=== PATIENT | male | born 1970 | race Caucasian/White ===

== ENCOUNTER 2019-10-12 11:14 | Emergency (ER) | payer OTHER ==
[~2019-10-12] VITALS: Ht 177.8 cm; Wt 117.9 kg
[~2019-10-12 11:14] MED LIST: AMOCLA875 PO; ANTIDIARRHEAL; BENTYL20 MG MT; BUTASPCAFT MT; CETI5 PO; DILT120 PO; LEVSOD50 MT; LEVSOD75; LOSHYD MT; METO25 MT; Naprosyn500 MG PO; Norco 5-325 Ta1 EACH PO; PRED10 PO; PROCODE120 PO; Percocet 5-3251 EACH PO; Prednisone20 MG PO; QVAR7.3 G1 MT; Valium5 MG PO; Zithromax250 MG PO
[2019-10-12 12:09] LABS: BASOPHILS ABSOLUTE AUTO 0.12 K/mm3 (0.00-0.23); BASOPHILS PERCENT AUTO 2 % (0-2); EOSINOPHILS ABSOLUTE AUTO 0.24 K/mm3 (0.00-0.68); EOSINOPHILS PERCENT AUTO 4 % (0-6); Hematocrit 47.2 % (37.0-53.0); Hemoglobin 15.7 g/dL (13.5-17.5); IMMATURE GRAN ABSOLUTE AUTO 0.03 K/mm3 (0.00-0.10); IMMATURE GRAN PERCENT AUTO 1 % (0-1); LYMPHOCYTES ABSOLUTE AUTO 1.64 K/mm3 (0.84-5.20); LYMPHOCYTES PERCENT AUTO 25 % (21-46); MONOCYTES ABSOLUTE AUTO 0.48 K/mm3 (0.16-1.47); MONOCYTES PERCENT AUTO 7 % (4-13); Mean Corpuscular HGB 31.3 pg (26.0-34.0); Mean Corpuscular HGB Conc 33.3 g/dL (31.5-36.5); Mean Corpuscular Volume 94 fL (80-100); Mean Platelet Volume 10.7 fL (9.1-12.4); NEUTROPHILS ABSOLUTE AUTO 4.04 K/mm3 (1.96-9.15); NEUTROPHILS PERCENT AUTO 62 % (41-73); Platelet Count 178 K/mm3 (150-400); RDW Coefficient Variation 12.3 % (11.7-14.2); RDW Standard Deviation 42.7 fL (35.1-46.3); Red Blood Cell Count 5.02 M/mm3 (4.30-5.90); White Blood Cell Count 6.55 K/mm3 (4.00-11.30)
[2019-10-12 12:35] LABS: Alanine Aminotransfer (ALT/SGP 26 U/L (12-78); Albumin, Blood 3.8 g/dL (3.4-5.0); Albumin/Globulin Ratio 1.2 (0.8-1.8); Alk Phos 65 U/L (50-136); Anion Gap 4 mmol/L (6-16); Aspartate Aminotrans (AST/SGOT 18 U/L (12-37); Bilirubin, Total 0.5 mg/dL (0.1-1.0); Blood Urea Nitrogen 16 mg/dL (8-24); CO2, Blood 28 mmol/L (21-32); Calcium, Blood 8.9 mg/dL (8.5-10.1); Chloride, Blood 108 mmol/L (98-108); Creatinine, Blood 1.07 mg/dL (0.60-1.20); Globulin, Blood 3.2 g/dL (2.2-4.0); Glomerular Filtration Rate >60 (60-); Glucose, Blood 102 mg/dL (70-99); Potassium, Blood 4.3 mmol/L (3.5-5.5); Sodium, Blood 140 mmol/L (136-145); Troponin I <0.015 ng/mL (0.000-0.040)
[2019-10-12 13:32] LABS: Thyroid Stimulating Hormone 6.27 uIU/mL (0.360-4.800)
[2019-10-12 14:02] LABS: Free Thyroxine 0.87 ng/dL (0.70-1.60)
[2019-10-12 14:07] LABS: Triiodothyronine, Free 2.94 pg/mL (2.18-3.98)
[2019-10-12] MEDS ORDERED: MECL12.5 PO (15:08)
== END 2019-10-12 15:17 | disposition home or self-care (01) ==
LOC: ER 11:14
PROVIDERS: Physician Assistant
DX: R00.2 Palpitations (principal); R51 Headache; I10 Essential (primary) hypertension; I48.91 Unspecified atrial fibrillation; E03.9 Hypothyroidism, unspecified; J44.9 Chronic obstructive pulmonary disease, unspecified; F17.220 Nicotine dependence, chewing tobacco, uncomplicated; Z79.899 Other long term (current) drug therapy
CPT/HCPCS: 36415; 70450; 80053; 83735; 84439; 84443; 84481; 84484; 85025; 93005; 93010; 93225; 93226; 99285-25

== ENCOUNTER 2020-01-03 03:13 | Emergency (ER) | payer OTHER ==
[~2020-01-03] VITALS: Ht 177.8 cm; Wt 120.2 kg
[~2020-01-03 03:13] MED LIST changes: +MECL12.5 PO
[2020-01-03] MEDS ORDERED: EUTHYROX88 MCG PO (03:23)
[2020-01-03] MEDS ORDERED: Anti-Diarrheal2 MG PO (03:23)
[2020-01-03] MEDS ORDERED: ASPI81CH PO (03:23)
[2020-01-03] MEDS ORDERED: DILTIAZEM 24HR300 M2 PO (03:24)
[2020-01-03] MEDS ORDERED: BUPR150ER PO (03:24)
[2020-01-03 03:38] LABS: BASOPHILS ABSOLUTE AUTO 0.07 K/mm3 (0.00-0.23); BASOPHILS PERCENT AUTO 1 % (0-2); EOSINOPHILS ABSOLUTE AUTO 0.13 K/mm3 (0.00-0.68); EOSINOPHILS PERCENT AUTO 2 % (0-6); Hematocrit 42.7 % (37.0-53.0); Hemoglobin 13.9 g/dL (13.5-17.5); IMMATURE GRAN ABSOLUTE AUTO 0.04 K/mm3 (0.00-0.10); IMMATURE GRAN PERCENT AUTO 1 % (0-1); LYMPHOCYTES ABSOLUTE AUTO 1.12 K/mm3 (0.84-5.20); LYMPHOCYTES PERCENT AUTO 13 % (21-46); MONOCYTES ABSOLUTE AUTO 0.56 K/mm3 (0.16-1.47); MONOCYTES PERCENT AUTO 6 % (4-13); Mean Corpuscular HGB 31.2 pg (26.0-34.0); Mean Corpuscular HGB Conc 32.6 g/dL (31.5-36.5); Mean Corpuscular Volume 96 fL (80-100); Mean Platelet Volume 11.5 fL (9.1-12.4); NEUTROPHILS ABSOLUTE AUTO 6.91 K/mm3 (1.96-9.15); NEUTROPHILS PERCENT AUTO 78 % (41-73); Platelet Count 162 K/mm3 (150-400); RDW Coefficient Variation 12.4 % (11.7-14.2); RDW Standard Deviation 44.2 fL (35.1-46.3); Red Blood Cell Count 4.46 M/mm3 (4.30-5.90); White Blood Cell Count 8.83 K/mm3 (4.00-11.30)
[2020-01-03 03:57] LABS: Alanine Aminotransfer (ALT/SGP 30 U/L (12-78); Albumin, Blood 3.7 g/dL (3.4-5.0); Albumin/Globulin Ratio 1.2 (0.8-1.8); Alk Phos 71 U/L (50-136); Anion Gap 7 mmol/L (6-16); Aspartate Aminotrans (AST/SGOT 21 U/L (12-37); Bilirubin, Total 0.2 mg/dL (0.1-1.0); Blood Urea Nitrogen 18 mg/dL (8-24); Bun/Creatinine Ratio 19.4 (12.0-20.0); CO2, Blood 24 mmol/L (21-32); Calcium, Blood 8.5 mg/dL (8.5-10.1); Chloride, Blood 112 mmol/L (98-108); Creatinine, Blood 0.93 mg/dL (0.60-1.20); Glomerular Filtration Rate >60 (60-); Glucose, Blood 118 mg/dL (70-99); Potassium, Blood 4.2 mmol/L (3.5-5.5); Sodium, Blood 143 mmol/L (136-145); Total Protein, Blood 6.7 g/dL (6.4-8.2); Troponin I <0.015 ng/mL (0.000-0.040)
[2020-01-03] MEDS ORDERED: Prednisone20 MG PO (04:48)
== END 2020-01-03 04:55 | disposition home or self-care (01) ==
LOC: ER 03:13
PROVIDERS: Emergency Medicine
DX: J44.1 Chronic obstructive pulmonary disease with (acute) exacerbation (principal); Z91.040 Latex allergy status; Z79.899 Other long term (current) drug therapy; Z79.82 Long term (current) use of aspirin; J45.909 Unspecified asthma, uncomplicated; G43.909 Migraine, unspecified, not intractable, without status migrainosus; I10 Essential (primary) hypertension; I48.91 Unspecified atrial fibrillation; Z87.891 Personal history of nicotine dependence
CPT/HCPCS: 36415; 71045; 80053; 84484; 85025; 93005; 93010; 94644; 96374; 99284-25; J2930

== ENCOUNTER 2021-02-14 10:29 | Emergency (ER) | payer OTHER, SELFPAY ==
[~2021-02-14] VITALS: Ht 177.8 cm; Wt 136.1 kg
[~2021-02-14 10:29] MED LIST changes: +ASPI81CH PO; +Anti-Diarrheal2 MG PO; +BUPR150ER PO; +DILTIAZEM 24HR300 M2 PO; +EUTHYROX88 MCG PO
[2021-02-14 11:01] LABS: BASOPHILS ABSOLUTE AUTO 0.08 K/mm3 (0.00-0.23); BASOPHILS PERCENT AUTO 1 % (0-2); EOSINOPHILS ABSOLUTE AUTO 0.27 K/mm3 (0.00-0.68); EOSINOPHILS PERCENT AUTO 4 % (0-6); Hematocrit 45.4 % (37.0-53.0); Hemoglobin 15.1 g/dL (13.5-17.5); IMMATURE GRAN ABSOLUTE AUTO 0.01 K/mm3 (0.00-0.10); IMMATURE GRAN PERCENT AUTO 0 % (0-1); LYMPHOCYTES ABSOLUTE AUTO 1.99 K/mm3 (0.84-5.20); LYMPHOCYTES PERCENT AUTO 28 % (21-46); MONOCYTES ABSOLUTE AUTO 0.56 K/mm3 (0.16-1.47); MONOCYTES PERCENT AUTO 8 % (4-13); Mean Corpuscular HGB 31.3 pg (26.0-34.0); Mean Corpuscular HGB Conc 33.3 g/dL (31.5-36.5); Mean Corpuscular Volume 94 fL (80-100); Mean Platelet Volume 10.7 fL (9.1-12.4); NEUTROPHILS ABSOLUTE AUTO 4.32 K/mm3 (1.96-9.15); NEUTROPHILS PERCENT AUTO 60 % (41-73); Platelet Count 171 K/mm3 (150-400); RDW Coefficient Variation 12.2 % (11.7-14.2); RDW Standard Deviation 42.5 fL (35.1-46.3); Red Blood Cell Count 4.83 M/mm3 (4.30-5.90); White Blood Cell Count 7.23 K/mm3 (4.00-11.30)
[2021-02-14 11:14] LABS: International Normalized Ratio 0.93
[2021-02-14 11:24] LABS: Alanine Aminotransfer (ALT/SGP 35 U/L (12-78); Albumin, Blood 3.5 g/dL (3.4-5.0); Albumin/Globulin Ratio 1.1 (0.8-1.8); Alk Phos 73 U/L (50-136); Anion Gap 5 mmol/L (6-16); Aspartate Aminotrans (AST/SGOT 22 U/L (12-37); Bilirubin, Total 0.2 mg/dL (0.1-1.0); Blood Urea Nitrogen 20 mg/dL (8-24); Bun/Creatinine Ratio 20.2 (12.0-20.0); CO2, Blood 28 mmol/L (21-32); Calcium, Blood 8.9 mg/dL (8.5-10.1); Chloride, Blood 110 mmol/L (98-108); Creatinine, Blood 0.99 mg/dL (0.60-1.20); Globulin, Blood 3.1 g/dL (2.2-4.0); Glomerular Filtration Rate >60 (60-); Glucose, Blood 125 mg/dL (70-99); Potassium, Blood 3.8 mmol/L (3.5-5.5); Sodium, Blood 143 mmol/L (136-145); Total Protein, Blood 6.6 g/dL (6.4-8.2); Troponin I <0.015 ng/mL (0.000-0.040)
[2021-02-14] MEDS ORDERED: ATEN25 PO (13:45)
[2021-02-14] MEDS ORDERED: CLON.1 PO (13:45)
== END 2021-02-14 14:55 | disposition home or self-care (01) ==
LOC: ER 10:29
PROVIDERS: Emergency Medicine
DX: R07.9 Chest pain, unspecified (principal); I10 Essential (primary) hypertension; E03.9 Hypothyroidism, unspecified; J44.9 Chronic obstructive pulmonary disease, unspecified; I48.91 Unspecified atrial fibrillation; F17.220 Nicotine dependence, chewing tobacco, uncomplicated; Z79.82 Long term (current) use of aspirin; Z79.899 Other long term (current) drug therapy
CPT/HCPCS: 71045; 80053; 83880; 84484; 85025; 85610; 93005; 93010; 99285-25

== ENCOUNTER 2021-04-06 20:40 | Emergency (ER) | payer OTHER, SELFPAY ==
[~2021-04-06] VITALS: Ht 177.8 cm; Wt 136.1 kg
[~2021-04-06 20:40] MED LIST changes: +ATEN25 PO; +CLON.1 PO
[2021-04-06 21:13] LABS: BASOPHILS ABSOLUTE AUTO 0.08 K/mm3 (0.00-0.23); BASOPHILS PERCENT AUTO 1 % (0-2); EOSINOPHILS ABSOLUTE AUTO 0.16 K/mm3 (0.00-0.68); EOSINOPHILS PERCENT AUTO 2 % (0-6); Hemoglobin 14.7 g/dL (13.5-17.5); IMMATURE GRAN ABSOLUTE AUTO 0.03 K/mm3 (0.00-0.10); IMMATURE GRAN PERCENT AUTO 0 % (0-1); LYMPHOCYTES ABSOLUTE AUTO 2.25 K/mm3 (0.84-5.20); LYMPHOCYTES PERCENT AUTO 25 % (21-46); MONOCYTES ABSOLUTE AUTO 0.59 K/mm3 (0.16-1.47); MONOCYTES PERCENT AUTO 7 % (4-13); Mean Corpuscular HGB 31.8 pg (26.0-34.0); Mean Corpuscular HGB Conc 33.4 g/dL (31.5-36.5); Mean Corpuscular Volume 95 fL (80-100); Mean Platelet Volume 11.4 fL (9.1-12.4); NEUTROPHILS ABSOLUTE AUTO 5.97 K/mm3 (1.96-9.15); NEUTROPHILS PERCENT AUTO 66 % (41-73); Platelet Count 165 K/mm3 (150-400); RDW Coefficient Variation 12.4 % (11.7-14.2); RDW Standard Deviation 43.4 fL (35.1-46.3); Red Blood Cell Count 4.62 M/mm3 (4.30-5.90); White Blood Cell Count 9.08 K/mm3 (4.00-11.30)
[2021-04-06 21:33] LABS: Alanine Aminotransfer (ALT/SGP 31 U/L (12-78); Albumin, Blood 3.8 g/dL (3.4-5.0); Albumin/Globulin Ratio 1.2 (0.8-1.8); Alk Phos 58 U/L (50-136); Anion Gap 4 mmol/L (6-16); Aspartate Aminotrans (AST/SGOT 30 U/L (12-37); Bilirubin, Total 0.6 mg/dL (0.1-1.0); Blood Urea Nitrogen 12 mg/dL (8-24); Bun/Creatinine Ratio 10.5 (12.0-20.0); CO2, Blood 29 mmol/L (21-32); Chloride, Blood 107 mmol/L (98-108); Creatinine, Blood 1.14 mg/dL (0.60-1.20); Globulin, Blood 3.2 g/dL (2.2-4.0); Glomerular Filtration Rate >60 (60-); Glucose, Blood 114 mg/dL (70-99); Sodium, Blood 140 mmol/L (136-145)
[2021-04-06] MEDS ORDERED: BUPR150ER PO (22:59)
[2021-04-06] MEDS ORDERED: EUTHYROX88 MCG PO (23:00)
[2021-04-06] MEDS ORDERED: FURO20 PO (23:01)
[2021-04-06] MEDS ORDERED: KLOR-CON M1010 MEQ PO (23:02)
[2021-04-06] MEDS ORDERED: GABA300 PO (23:02)
[2021-04-06] MEDS ORDERED: VITAMIN D325 MC3 PO (23:03)
[2021-04-06] MEDS ORDERED: HUMIRA PEN40 MG/0.2 SC (23:05)
== END 2021-04-06 23:30 | disposition home or self-care (01) ==
LOC: ER 20:40
PROVIDERS: Physician Assistant
DX: R60.0 Localized edema (principal); I10 Essential (primary) hypertension; E03.9 Hypothyroidism, unspecified; I48.91 Unspecified atrial fibrillation; J44.9 Chronic obstructive pulmonary disease, unspecified; Z79.82 Long term (current) use of aspirin; Z79.899 Other long term (current) drug therapy; Z91.040 Latex allergy status
CPT/HCPCS: 71045; 80053; 85025; 99283-25

== ENCOUNTER 2021-06-07 20:47 | Emergency (ER) | payer OTHER ==
[~2021-06-07] VITALS: Ht 177.8 cm; Wt 132.0 kg
[~2021-06-07 20:47] MED LIST changes: +FURO20 PO; +GABA300 PO; +HUMIRA PEN40 MG/0.2 SC; +KLOR-CON M1010 MEQ PO; +VITAMIN D325 MC3 PO
[2021-06-07 21:45] LABS: BASOPHILS ABSOLUTE AUTO 0.08 K/mm3 (0.00-0.23); BASOPHILS PERCENT AUTO 1 % (0-2); EOSINOPHILS ABSOLUTE AUTO 0.24 K/mm3 (0.00-0.68); EOSINOPHILS PERCENT AUTO 4 % (0-6); Hematocrit 47.5 % (37.0-53.0); Hemoglobin 15.6 g/dL (13.5-17.5); IMMATURE GRAN ABSOLUTE AUTO 0.05 K/mm3 (0.00-0.10); IMMATURE GRAN PERCENT AUTO 1 % (0-1); LYMPHOCYTES ABSOLUTE AUTO 2.65 K/mm3 (0.84-5.20); LYMPHOCYTES PERCENT AUTO 40 % (21-46); MONOCYTES ABSOLUTE AUTO 0.31 K/mm3 (0.16-1.47); MONOCYTES PERCENT AUTO 5 % (4-13); Mean Corpuscular HGB 31.5 pg (26.0-34.0); Mean Corpuscular HGB Conc 32.8 g/dL (31.5-36.5); Mean Corpuscular Volume 96 fL (80-100); Mean Platelet Volume 12.6 fL (9.1-12.4); NEUTROPHILS ABSOLUTE AUTO 3.28 K/mm3 (1.96-9.15); NEUTROPHILS PERCENT AUTO 50 % (41-73); Platelet Count 133 K/mm3 (150-400); RDW Coefficient Variation 12.2 % (11.7-14.2); RDW Standard Deviation 43.4 fL (35.1-46.3); Red Blood Cell Count 4.95 M/mm3 (4.30-5.90); White Blood Cell Count 6.61 K/mm3 (4.00-11.30)
[2021-06-07 22:24] LABS: Alanine Aminotransfer (ALT/SGP 44 U/L (12-78); Albumin, Blood 3.4 g/dL (3.4-5.0); Albumin/Globulin Ratio 1.1 (0.8-1.8); Alk Phos 73 U/L (50-136); Anion Gap 4 mmol/L (6-16); Aspartate Aminotrans (AST/SGOT 43 U/L (12-37); Bilirubin, Total 0.2 mg/dL (0.1-1.0); Blood Urea Nitrogen 17 mg/dL (8-24); CO2, Blood 26 mmol/L (21-32); Calcium, Blood 8.7 mg/dL (8.5-10.1); Chloride, Blood 112 mmol/L (98-108); Glomerular Filtration Rate >60 (60-); Glucose, Blood 79 mg/dL (70-99); Potassium, Blood 4.2 mmol/L (3.5-5.5); Sodium, Blood 142 mmol/L (136-145); Total Protein, Blood 6.4 g/dL (6.4-8.2); Troponin I <0.015 ng/mL (0.000-0.040)
== END 2021-06-07 23:10 | disposition home or self-care (01) ==
LOC: ER 20:47
PROVIDERS: Physician Assistant
DX: R00.2 Palpitations (principal); I10 Essential (primary) hypertension; E03.9 Hypothyroidism, unspecified; I48.91 Unspecified atrial fibrillation; F17.220 Nicotine dependence, chewing tobacco, uncomplicated; Z79.82 Long term (current) use of aspirin; Z79.899 Other long term (current) drug therapy; Z91.040 Latex allergy status
CPT/HCPCS: 36415; 71045; 80053; 83690; 83880; 84484; 85025; 93005; 93010; 94640; 99285-25

== ENCOUNTER 2021-10-13 16:49 | Emergency (ER) | payer OTHER ==
[~2021-10-13] VITALS: Ht 177.8 cm; Wt 74.8 kg
[2021-10-13 17:34] LABS: BASOPHILS ABSOLUTE AUTO 0.07 K/mm3 (0.00-0.23); BASOPHILS PERCENT AUTO 1 % (0-2); EOSINOPHILS ABSOLUTE AUTO 0.14 K/mm3 (0.00-0.68); EOSINOPHILS PERCENT AUTO 2 % (0-6); Hematocrit 46.9 % (37.0-53.0); Hemoglobin 15.5 g/dL (13.5-17.5); IMMATURE GRAN ABSOLUTE AUTO 0.01 K/mm3 (0.00-0.10); IMMATURE GRAN PERCENT AUTO 0 % (0-1); LYMPHOCYTES ABSOLUTE AUTO 2.21 K/mm3 (0.84-5.20); LYMPHOCYTES PERCENT AUTO 33 % (21-46); MONOCYTES ABSOLUTE AUTO 0.41 K/mm3 (0.16-1.47); MONOCYTES PERCENT AUTO 6 % (4-13); Mean Corpuscular HGB 32.2 pg (26.0-34.0); Mean Corpuscular Volume 97 fL (80-100); Mean Platelet Volume 12.6 fL (9.1-12.4); NEUTROPHILS ABSOLUTE AUTO 3.93 K/mm3 (1.96-9.15); NEUTROPHILS PERCENT AUTO 58 % (41-73); Platelet Count 138 K/mm3 (150-400); RDW Coefficient Variation 11.9 % (11.7-14.2); RDW Standard Deviation 43.2 fL (35.1-46.3); Red Blood Cell Count 4.82 M/mm3 (4.30-5.90); White Blood Cell Count 6.77 K/mm3 (4.00-11.30)
[2021-10-13 17:54] LABS: Alanine Aminotransfer (ALT/SGP 51 U/L (12-78); Albumin/Globulin Ratio 1.1 (0.8-1.8); Alk Phos 64 U/L (50-136); Anion Gap 4 mmol/L (6-16); Aspartate Aminotrans (AST/SGOT 29 U/L (12-37); Bilirubin, Total 0.6 mg/dL (0.1-1.0); Blood Urea Nitrogen 20 mg/dL (8-24); Bun/Creatinine Ratio 20.7 (12.0-20.0); CO2, Blood 28 mmol/L (21-32); Calcium, Blood 9.5 mg/dL (8.5-10.1); Chloride, Blood 105 mmol/L (98-108); Creatinine, Blood 0.97 mg/dL (0.60-1.20); Globulin, Blood 3.5 g/dL (2.2-4.0); Glomerular Filtration Rate >60 (60-); Glucose, Blood 96 mg/dL (70-99); Potassium, Blood 4.1 mmol/L (3.5-5.5); Sodium, Blood 137 mmol/L (136-145); Total Protein, Blood 7.5 g/dL (6.4-8.2)
== END 2021-10-13 21:01 | disposition home or self-care (01) ==
LOC: ER 16:49
PROVIDERS: Physician Assistant
DX: R07.89 Other chest pain (principal); R00.2 Palpitations; R42 Dizziness and giddiness; I10 Essential (primary) hypertension; E03.9 Hypothyroidism, unspecified; I48.91 Unspecified atrial fibrillation; J44.9 Chronic obstructive pulmonary disease, unspecified; F17.220 Nicotine dependence, chewing tobacco, uncomplicated; Z91.040 Latex allergy status; Z79.899 Other long term (current) drug therapy; Z79.82 Long term (current) use of aspirin
CPT/HCPCS: 36415; 71046; 80053; 84484; 85025; 93005; 93010; 99285-25

== ENCOUNTER 2022-09-10 15:45 | Emergency (ER) | payer OTHER ==
[~2022-09-10] VITALS: Ht 177.8 cm; Wt 117.9 kg
[2022-09-10 16:30] LABS: BASOPHILS ABSOLUTE AUTO 0.12 K/mm3 (0.00-0.23); BASOPHILS PERCENT AUTO 2 % (0-2); EOSINOPHILS ABSOLUTE AUTO 0.26 K/mm3 (0.00-0.68); EOSINOPHILS PERCENT AUTO 4 % (0-6); Hematocrit 42.7 % (37.0-53.0); Hemoglobin 14.3 g/dL (13.5-17.5); IMMATURE GRAN ABSOLUTE AUTO 0.01 K/mm3 (0.00-0.10); IMMATURE GRAN PERCENT AUTO 0 % (0-1); LYMPHOCYTES ABSOLUTE AUTO 2.28 K/mm3 (0.84-5.20); LYMPHOCYTES PERCENT AUTO 37 % (21-46); MONOCYTES ABSOLUTE AUTO 0.39 K/mm3 (0.16-1.47); MONOCYTES PERCENT AUTO 6 % (4-13); Mean Corpuscular HGB 31.4 pg (26.0-34.0); Mean Corpuscular HGB Conc 33.5 g/dL (31.5-36.5); Mean Corpuscular Volume 94 fL (80-100); Mean Platelet Volume 10.8 fL (9.1-12.4); NEUTROPHILS ABSOLUTE AUTO 3.18 K/mm3 (1.96-9.15); NEUTROPHILS PERCENT AUTO 51 % (41-73); Platelet Count 164 K/mm3 (150-400); RDW Standard Deviation 42.1 fL (35.1-46.3); Red Blood Cell Count 4.56 M/mm3 (4.30-5.90); White Blood Cell Count 6.24 K/mm3 (4.00-11.30)
[2022-09-10 16:47] LABS: Albumin, Blood 3.8 g/dL (3.4-5.0); Albumin/Globulin Ratio 1.4 (0.8-1.8); Bilirubin, Total 0.3 mg/dL (0.1-1.0); Bun/Creatinine Ratio 12.7 (12.0-20.0); Creatinine, Blood 1.1 mg/dL (0.60-1.20); Globulin, Blood 2.8 g/dL (2.2-4.0); Potassium, Blood 4.2 mmol/L (3.5-5.5); Total Protein, Blood 6.6 g/dL (6.4-8.2)
== END 2022-09-10 21:25 | disposition home or self-care (01) ==
LOC: ER 15:45
PROVIDERS: Physician Assistant
DX: R00.2 Palpitations (principal); R42 Dizziness and giddiness; I10 Essential (primary) hypertension; I48.0 Paroxysmal atrial fibrillation; E03.9 Hypothyroidism, unspecified; J44.9 Chronic obstructive pulmonary disease, unspecified; F17.220 Nicotine dependence, chewing tobacco, uncomplicated; Z91.040 Latex allergy status; Z79.899 Other long term (current) drug therapy; Z79.82 Long term (current) use of aspirin
CPT/HCPCS: 36415; 71045; 80053; 83880; 84484; 85025; 93005; 93010; A9270

== ENCOUNTER 2023-02-21 00:30 | Emergency (ER) | payer OTHER ==
[~2023-02-21] VITALS: Ht 177.8 cm; Wt 127.0 kg
[2023-02-21 01:25] LABS: BASOPHILS PERCENT AUTO 2 % (0-2); EOSINOPHILS ABSOLUTE AUTO 0.19 K/mm3 (0.00-0.68); EOSINOPHILS PERCENT AUTO 3 % (0-6); Hematocrit 45.1 % (37.0-53.0); Hemoglobin 14.8 g/dL (13.5-17.5); IMMATURE GRAN ABSOLUTE AUTO 0.01 K/mm3 (0.00-0.10); IMMATURE GRAN PERCENT AUTO 0 % (0-1); LYMPHOCYTES ABSOLUTE AUTO 2.85 K/mm3 (0.84-5.20); LYMPHOCYTES PERCENT AUTO 42 % (21-46); MONOCYTES ABSOLUTE AUTO 0.51 K/mm3 (0.16-1.47); MONOCYTES PERCENT AUTO 7 % (4-13); Mean Corpuscular HGB 30.8 pg (26.0-34.0); Mean Corpuscular HGB Conc 32.8 g/dL (31.5-36.5); Mean Corpuscular Volume 94 fL (80-100); Mean Platelet Volume 11.5 fL (9.1-12.4); NEUTROPHILS PERCENT AUTO 47 % (41-73); Platelet Count 148 K/mm3 (150-400); RDW Coefficient Variation 12.1 % (11.7-14.2); RDW Standard Deviation 42.4 fL (35.1-46.3); Red Blood Cell Count 4.81 M/mm3 (4.30-5.90); White Blood Cell Count 6.86 K/mm3 (4.00-11.30)
[2023-02-21 01:39] LABS: Albumin, Blood 3.8 g/dL (3.4-5.0); Albumin/Globulin Ratio 1.2 (0.8-1.8); Bilirubin, Total 0.3 mg/dL (0.1-1.0); Bun/Creatinine Ratio 20.5 (12.0-20.0); Creatinine, Blood 1.12 mg/dL (0.60-1.20); Globulin, Blood 3.2 g/dL (2.2-4.0); Potassium, Blood 4.2 mmol/L (3.5-5.5)
== END 2023-02-21 03:39 | disposition home or self-care (01) ==
LOC: ER 00:30
PROVIDERS: Emergency Medicine
DX: I10 Essential (primary) hypertension (principal); R42 Dizziness and giddiness; R51.9 Headache, unspecified; E03.9 Hypothyroidism, unspecified; J44.9 Chronic obstructive pulmonary disease, unspecified; F17.220 Nicotine dependence, chewing tobacco, uncomplicated; Z91.040 Latex allergy status; Z79.899 Other long term (current) drug therapy; Z79.82 Long term (current) use of aspirin
CPT/HCPCS: 36415; 80053; 85025; 93005; 93010; 96374; 96375; 99283-25; J0780; J1200

== ENCOUNTER 2023-12-23 13:40 | Emergency (ER) | payer OTHER ==
[~2023-12-23] VITALS: Ht 177.8 cm; Wt 128.8 kg
[2023-12-23 14:19] LABS: BASOPHILS ABSOLUTE AUTO 0.13 K/mm3 (0.00-0.23); BASOPHILS PERCENT AUTO 2 % (0-2); EOSINOPHILS ABSOLUTE AUTO 0.23 K/mm3 (0.00-0.68); EOSINOPHILS PERCENT AUTO 3 % (0-6); Hematocrit 46.2 % (37.0-53.0); Hemoglobin 15.3 g/dL (13.5-17.5); IMMATURE GRAN ABSOLUTE AUTO 0.01 K/mm3 (0.00-0.10); IMMATURE GRAN PERCENT AUTO 0 % (0-1); LYMPHOCYTES ABSOLUTE AUTO 2.36 K/mm3 (0.84-5.20); LYMPHOCYTES PERCENT AUTO 35 % (21-46); MONOCYTES ABSOLUTE AUTO 0.51 K/mm3 (0.16-1.47); MONOCYTES PERCENT AUTO 8 % (4-13); Mean Corpuscular HGB 31.6 pg (26.0-34.0); Mean Corpuscular HGB Conc 33.1 g/dL (31.5-36.5); Mean Corpuscular Volume 96 fL (80-100); Mean Platelet Volume 10.4 fL (9.1-12.4); NEUTROPHILS PERCENT AUTO 52 % (41-73); Platelet Count 181 K/mm3 (150-400); RDW Coefficient Variation 12.3 % (11.7-14.2); RDW Standard Deviation 43.2 fL (35.1-46.3); Red Blood Cell Count 4.84 M/mm3 (4.30-5.90); White Blood Cell Count 6.74 K/mm3 (4.00-11.30)
[2023-12-23 14:38] LABS: Albumin, Blood 3.9 g/dL (3.4-5.0); Albumin/Globulin Ratio 1.2 (0.8-1.8); Bilirubin, Total 0.5 mg/dL (0.1-1.0); Bun/Creatinine Ratio 26.2 (12.0-20.0); Calcium, Blood 9.5 mg/dL (8.5-10.1); Creatinine, Blood 1.03 mg/dL (0.60-1.20); Globulin, Blood 3.2 g/dL (2.2-4.0); Potassium, Blood 4.3 mmol/L (3.5-5.5); Total Protein, Blood 7.1 g/dL (6.4-8.2)
[2023-12-23] MEDS ORDERED: FURO80 PO (15:04)
[2023-12-23] MEDS ORDERED: BACLOFEN5 M1 PO (15:04)
[2023-12-23] MEDS ORDERED: POTA8 PO (15:04)
[2023-12-23 19:25] VITALS: BP 128/80
== END 2023-12-23 19:29 | disposition home or self-care (01) ==
LOC: ER 13:40
PROVIDERS: Physician Assistant
DX: E86.0 Dehydration (principal); R35.89 Other polyuria; I48.91 Unspecified atrial fibrillation; I11.0 Hypertensive heart disease with heart failure; I50.9 Heart failure, unspecified; K58.9 Irritable bowel syndrome, unspecified; E03.9 Hypothyroidism, unspecified; J44.9 Chronic obstructive pulmonary disease, unspecified; G89.29 Other chronic pain; F17.220 Nicotine dependence, chewing tobacco, uncomplicated; Z91.040 Latex allergy status; Z79.82 Long term (current) use of aspirin; Z79.899 Other long term (current) drug therapy; Z79.890 Hormone replacement therapy
CPT/HCPCS: 71046; 80053; 83690; 83880; 84484; 85025; 93005; 93010; 99284-25; J7030

== ENCOUNTER 2023-12-29 14:52 | Observation (INO) | payer OTHER ==
[~2023-12-29] VITALS: Ht 177.8 cm; Wt 140.3 kg
[~2023-12-29 14:52] MED LIST changes: +BACLOFEN5 M1 PO; +FURO80 PO; +POTA8 PO
[2023-12-29 15:36] LABS: BASOPHILS ABSOLUTE AUTO 0.11 K/mm3 (0.00-0.23); BASOPHILS PERCENT AUTO 1 % (0-2); EOSINOPHILS ABSOLUTE AUTO 0.24 K/mm3 (0.00-0.68); EOSINOPHILS PERCENT AUTO 3 % (0-6); Hematocrit 47.9 % (37.0-53.0); Hemoglobin 16.1 g/dL (13.5-17.5); IMMATURE GRAN ABSOLUTE AUTO 0.01 K/mm3 (0.00-0.10); IMMATURE GRAN PERCENT AUTO 0 % (0-1); LYMPHOCYTES PERCENT AUTO 28 % (21-46); MONOCYTES ABSOLUTE AUTO 0.63 K/mm3 (0.16-1.47); MONOCYTES PERCENT AUTO 8 % (4-13); Mean Corpuscular HGB 31.6 pg (26.0-34.0); Mean Corpuscular HGB Conc 33.6 g/dL (31.5-36.5); Mean Corpuscular Volume 94 fL (80-100); Mean Platelet Volume 10.6 fL (9.1-12.4); NEUTROPHILS ABSOLUTE AUTO 4.63 K/mm3 (1.96-9.15); NEUTROPHILS PERCENT AUTO 59 % (41-73); Platelet Count 182 K/mm3 (150-400); RDW Coefficient Variation 12.1 % (11.7-14.2); RDW Standard Deviation 42.3 fL (35.1-46.3); White Blood Cell Count 7.82 K/mm3 (4.00-11.30)
[2023-12-29 15:56] LABS: Alanine Aminotransfer (ALT/SGP 34 U/L (12-78); Albumin, Blood 3.6 g/dL (3.4-5.0); Alk Phos 73 U/L (50-136); Anion Gap Unable to Calculate mmol/L (6-16); Aspartate Aminotrans (AST/SGOT 27 U/L (12-37); Bilirubin, Total 0.4 mg/dL (0.1-1.0); Blood Urea Nitrogen 20 mg/dL (8-24); Bun/Creatinine Ratio 21.9 (12.0-20.0); CO2, Blood 28 mmol/L (21-32); Calcium, Blood 9.1 mg/dL (8.5-10.1); Chloride, Blood 113 mmol/L (98-108); Creatinine, Blood 0.91 mg/dL (0.60-1.20); Globulin, Blood 3.5 g/dL (2.2-4.0); Glomerular Filtration Rate 100 (60-); Glucose, Blood 112 mg/dL (70-99); Potassium, Blood 4.7 mmol/L (3.5-5.5); Sodium, Blood 140 mmol/L (136-145); Total Protein, Blood 7.1 g/dL (6.4-8.2)
[2023-12-29] MEDS ORDERED: Aspirin 81 MG Chew PO ONE (21:50)
[2023-12-29] MEDS ORDERED: FLU VACC QS2023-24(6MOS UP)/PF 60 MCG/0.5 ML SYRINGE IM ONE (22:25)
[2023-12-29] MEDS ORDERED: Ondansetron HCl 2 MG / ML 2ML Vial IV PRN (22:25)
[2023-12-29] MEDS ORDERED: Acetaminophen 325 MG TABLET PO PRN (22:25)
[2023-12-29] MEDS ORDERED: Albuterol 2.5 MG/3 ML VIAL INH PRN (22:25)
[2023-12-29] MEDS ORDERED: Robaxin750 MG PO (22:50)
[2023-12-29] MEDS ORDERED: POTA10T PO (22:51)
[2023-12-29] MEDS ORDERED: FURO20 PO (22:51)
[2023-12-29] MEDS ORDERED: AMIT25 PO (22:52)
[2023-12-29] MEDS ORDERED: BACL10 PO (22:53)
[2023-12-29] MEDS ORDERED: Albuterol 2.5 MG/3 ML VIAL INH ONE (23:00)
[2023-12-29 23:34] VITALS: BP 145/97
--- NOTE | 2023-12-30 04:06 | NUR ---
SHIFT SUMMARY 53 YR M ADMITTED ON 01/18/24. FULL CODE. NO ACUTE CHANGES THIS SHIFT. NO C/O PAIN OR DISCOMFORT OR HEART PALPATIONS. NO ADVERSE EVENTS ON TELE. PT IS A&O X 4 AND INDEPENDANT IN THE ROOM. AFTER HAVING A SNACK HE WENT TO SLEEP AND SLEPT FOR THE REST OF THE SHIFT. HE IS VERY PLEASANT AND COOPERATIVE WITH CARE. BED IN LOW POSITION AND CALL LIGHT IN REACH.
[2023-12-30] MEDS ORDERED: Levothyroxine Sodium 0.088 MG Tab PO SCH (06:00)
[2023-12-30 07:47] VITALS: BP 111/67
[2023-12-30] MEDS ORDERED: Enoxaparin 40 MG/0.4 ML SYR SC SCH (09:00)
[2023-12-30] MEDS ORDERED: Atenolol 25 MG Tab PO SCH (09:00)
[2023-12-30] MEDS ORDERED: Aspirin 81 MG Chew PO SCH (09:00)
[2023-12-30] MEDS ORDERED: FAMO20 PO (12:12)
--- NOTE | 2023-12-30 13:46 | NUR ---
PT DIACHARGED WITH DC INSTRUCTIONS. ONE NEW MED FOR PRILOSEC CALLED IN TO [facility] [place]. BELONGINGS SENT HOME WITH PT. WILL FOLLOW UP WITH PCP. PT DECLINED WHEELCHAIR, RN ESCORTED TO ELEVATER AND DIRECTED THE WAY. PT HAS GOOD STRENGTH AND INDEPENDANT TO CAR.
== END 2023-12-30 12:51 | disposition home or self-care (01) ==
LOC: ER 14:52 → MEDS 14:53 → ENPENDDIS 12-30 10:57 → MEDS 12-30 12:51
PROVIDERS: Physician Assistant; ADMIT Internal Medicine
DX: R07.89 Other chest pain (principal); E03.9 Hypothyroidism, unspecified; I10 Essential (primary) hypertension; G47.33 Obstructive sleep apnea (adult) (pediatric); E66.01 Morbid (severe) obesity due to excess calories; F17.200 Nicotine dependence, unspecified, uncomplicated; J44.9 Chronic obstructive pulmonary disease, unspecified; Z68.41 Body mass index [BMI] 40.0-44.9, adult
CPT/HCPCS: 70450; 71046; 80053; 84443; 84484; 85025; 93005; 93010; 94760; 99285-25; A9270; G0378

== ENCOUNTER 2024-07-26 17:24 | Emergency (ER) | payer OTHER ==
[~2024-07-26] VITALS: Ht 177.8 cm; Wt 122.5 kg
[~2024-07-26 17:24] MED LIST changes: +AMIT25 PO; +BACL10 PO; +FAMO20 PO; +POTA10T PO; +Robaxin750 MG PO
[2024-07-26 18:20] LABS: BASOPHILS PERCENT AUTO 1 % (0-2); EOSINOPHILS ABSOLUTE AUTO 0.17 K/mm3 (0.00-0.68); EOSINOPHILS PERCENT AUTO 2 % (0-6); Hematocrit 43.3 % (37.0-53.0); Hemoglobin 14.3 g/dL (13.5-17.5); IMMATURE GRAN ABSOLUTE AUTO 0.05 K/mm3 (0.00-0.10); IMMATURE GRAN PERCENT AUTO 0 % (0-1); LYMPHOCYTES ABSOLUTE AUTO 2.18 K/mm3 (0.84-5.20); LYMPHOCYTES PERCENT AUTO 19 % (21-46); MONOCYTES ABSOLUTE AUTO 0.94 K/mm3 (0.16-1.47); MONOCYTES PERCENT AUTO 8 % (4-13); Mean Corpuscular HGB 31.4 pg (26.0-34.0); Mean Corpuscular Volume 95 fL (80-100); Mean Platelet Volume 10.6 fL (9.1-12.4); NEUTROPHILS ABSOLUTE AUTO 8.04 K/mm3 (1.96-9.15); NEUTROPHILS PERCENT AUTO 70 % (41-73); Platelet Count 197 K/mm3 (150-400); RDW Coefficient Variation 12.3 % (11.7-14.2); RDW Standard Deviation 42.8 fL (35.1-46.3); Red Blood Cell Count 4.56 M/mm3 (4.30-5.90); White Blood Cell Count 11.48 K/mm3 (4.00-11.30)
[2024-07-26 18:35] LABS: Albumin, Blood 3.6 g/dL (3.4-5.0); Albumin/Globulin Ratio 1.1 (0.8-1.8); Bilirubin, Total 0.9 mg/dL (0.1-1.0); Bun/Creatinine Ratio 16.8 (12.0-20.0); Calcium, Blood 9.2 mg/dL (8.5-10.1); Creatinine, Blood 1.01 mg/dL (0.60-1.20); Globulin, Blood 3.4 g/dL (2.2-4.0); Potassium, Blood 4.1 mmol/L (3.5-5.5)
[2024-07-26 19:17] LABS: Influenza A, PCR NEGATIVE (NEGATIVE); Influenza B, PCR NEGATIVE (NEGATIVE); Resp Syncytial Virus, PCR NEGATIVE (NEGATIVE); SARS-Cov-2 (COVID-19) PCR, MMC NEGATIVE (NEGATIVE)
[2024-07-26] MEDS ORDERED: Morphine Sulfate 4 MG/1 ML Injection IV ONE (21:30)
[2024-07-26] MEDS ORDERED: Ondansetron HCl 2 MG / ML 2ML Vial IV ONE (21:30)
[2024-07-27 00:30] VITALS: BP 114/71
[2024-07-27] MEDS ORDERED: LIDO700A20 TOP (00:40)
[2024-07-27] MEDS ORDERED: Robaxin750 MG PO (00:40)
== END 2024-07-27 00:53 | disposition home or self-care (01) ==
LOC: ER 17:24
PROVIDERS: Student in an Organized Health Care Education/Training Program
DX: R07.2 Precordial pain (principal); R91.1 Solitary pulmonary nodule; D72.829 Elevated white blood cell count, unspecified; J44.89 Other specified chronic obstructive pulmonary disease; I48.91 Unspecified atrial fibrillation; E03.9 Hypothyroidism, unspecified; G43.909 Migraine, unspecified, not intractable, without status migrainosus; I11.0 Hypertensive heart disease with heart failure; I50.9 Heart failure, unspecified; F17.220 Nicotine dependence, chewing tobacco, uncomplicated; Z79.82 Long term (current) use of aspirin; Z79.899 Other long term (current) drug therapy; Z91.040 Latex allergy status
CPT/HCPCS: 0241U; 71045; 71260; 74177; 80053; 84484; 85025; 93005; 93010; 96374-59; 96375-59; 99285-25; J2270; J2405; Q9967

== ENCOUNTER 2024-08-07 07:16 | Inpatient (IN) | payer OTHER ==
[~2024-08-07] VITALS: Ht 177.8 cm; Wt 123.6 kg
[~2024-08-07 07:16] MED LIST changes: +LIDO700A20 TOP
[2024-08-07] MEDS ORDERED: Morphine Sulfate 4 MG/1 ML Injection IV ONE ×2 (08:00→09:30)
[2024-08-07 08:12] LABS: BASOPHILS ABSOLUTE AUTO 0.06 K/mm3 (0.00-0.23); BASOPHILS PERCENT AUTO 0 % (0-2); EOSINOPHILS ABSOLUTE AUTO 0.04 K/mm3 (0.00-0.68); EOSINOPHILS PERCENT AUTO 0 % (0-6); Hematocrit 37.6 % (37.0-53.0); Hemoglobin 12.3 g/dL (13.5-17.5); IMMATURE GRAN ABSOLUTE AUTO 0.05 K/mm3 (0.00-0.10); IMMATURE GRAN PERCENT AUTO 0 % (0-1); LYMPHOCYTES ABSOLUTE AUTO 1.11 K/mm3 (0.84-5.20); LYMPHOCYTES PERCENT AUTO 8 % (21-46); MONOCYTES ABSOLUTE AUTO 1.11 K/mm3 (0.16-1.47); MONOCYTES PERCENT AUTO 8 % (4-13); Mean Corpuscular HGB 31.1 pg (26.0-34.0); Mean Corpuscular HGB Conc 32.7 g/dL (31.5-36.5); Mean Corpuscular Volume 95 fL (80-100); Mean Platelet Volume 9.9 fL (9.1-12.4); NEUTROPHILS ABSOLUTE AUTO 11.95 K/mm3 (1.96-9.15); NEUTROPHILS PERCENT AUTO 83 % (41-73); Platelet Count 217 K/mm3 (150-400); RDW Coefficient Variation 11.9 % (11.7-14.2); RDW Standard Deviation 41.6 fL (35.1-46.3); Red Blood Cell Count 3.95 M/mm3 (4.30-5.90); White Blood Cell Count 14.32 K/mm3 (4.00-11.30)
[2024-08-07 08:24] LABS: Albumin, Blood 2.7 g/dL (3.4-5.0); Albumin/Globulin Ratio 0.8 (0.8-1.8); Bilirubin, Total 0.8 mg/dL (0.1-1.0); Calcium, Blood 8.6 mg/dL (8.5-10.1); Creatinine, Blood 0.8 mg/dL (0.60-1.20); Globulin, Blood 3.5 g/dL (2.2-4.0); Potassium, Blood 4.1 mmol/L (3.5-5.5); Total Protein, Blood 6.2 g/dL (6.4-8.2)
[2024-08-07] MEDS ORDERED: Azithromycin 500 MG in NS 250 ML IV ONE (10:25)
[2024-08-07] MEDS ORDERED: CefTRIAXone Sodium 2,000 MG in NS 100 ML IV ONE (10:25)
[2024-08-07] MEDS ORDERED: Methocarbamol 500 MG Tab PO PRN (10:45)
[2024-08-07] MEDS ORDERED: Ondansetron 4 MG TAB PO PRN (10:50)
[2024-08-07] MEDS ORDERED: OxyCODONE HCL 5 MG TAB PO PRN (10:50)
[2024-08-07] MEDS ORDERED: Bisacodyl 10 MG Supp PR PRN (10:55)
[2024-08-07] MEDS ORDERED: Magnesium Hydroxide Conc 10 ML UDC PO PRN (10:55)
[2024-08-07] MEDS ORDERED: Acetaminophen 325 MG TABLET PO PRN (10:55)
[2024-08-07] MEDS ORDERED: Naloxone HCl 0.4MG / ML 1ML Vial IV PRN (10:55)
[2024-08-07] MEDS ORDERED: HYDROmorphone HCl 2 MG Tab PO PRN ×2 (11:30→18:16)
[2024-08-07] MEDS ORDERED: Furosemide 10 MG/ML 4ML Vial IV ONE (11:35)
[2024-08-07 12:43] VITALS: BP 154/116
[2024-08-07 15:22] VITALS: BP 120/71
--- NOTE | 2024-08-07 18:13 | NUR ---
SPOKE TO DR MONTES DE OCA, AFTER DILAUDID TOOK EFFECT, PT DESAT A LITTLE. PLACED ON CPAP AND 3L O2. ORDERS TO DROP DILAUDID TO 1 MG. DONE
--- NOTE | 2024-08-07 18:32 | NUR ---
PT PLEASANT AT ADMIT. AT BEDSIDE. PT ADMITTED FOR HYPOXIA AND PAIN R/T NODULE IN CHEST WALL / LUNG AREA. HE HAD RECEIVED DILAUDID 2 MG IN ER AT NOON. AT ARRIVAL, HE WAS WORKING HARD WITH SHORT SHALLOW RESPIRATIONS AND STATED WAS TRYING TO DEAL WITH THE PAIN. WHEN DILAUDID STARTED IN ABOUT 1300 HE BEGAN TO RELAX MORE. AT 13;30 PT FINALLY RELAXED AND FELL ASLEEP. O2 ON 2L FOR COMFORT. SATS > 94% , RT CALLED LATER IN DAY, STATES HE DESATTED, PLACED ON CPAP AND IS DOING WELL, ALSO PLACED ON CONT BIOX. MAINTAINING >90%. DISCUSSED PT WITH DR MONTES DE OCA. DILAUDID CUT BACK SOME. NO OTHER CHANGES NOTED. BED IN LOW POSITION, CALL LITE IN REACH. AT BEDSIDE.
[2024-08-07 19:31] VITALS: BP 116/90
[2024-08-07] MEDS ORDERED: Amitriptyline HCl 25 MG Tab PO SCH (21:00)
[2024-08-07] MEDS ORDERED: Amitriptyline HCl 50 MG Tab PO SCH (21:00)
[2024-08-07] MEDS ORDERED: Atenolol 25 MG Tab PO SCH (21:00)
[2024-08-07] MEDS ORDERED: Famotidine 20 MG Tab PO SCH (21:00)
[2024-08-08] MEDS ORDERED: HYDROmorphone HCl 2 MG Tab PO PRN (01:00)
[2024-08-08 04:16] VITALS: BP 138/83
[2024-08-08 04:35] LABS: BASOPHILS ABSOLUTE AUTO 0.08 K/mm3 (0.00-0.23); BASOPHILS PERCENT AUTO 0 % (0-2); EOSINOPHILS ABSOLUTE AUTO 0.04 K/mm3 (0.00-0.68); EOSINOPHILS PERCENT AUTO 0 % (0-6); Hematocrit 40.6 % (37.0-53.0); Hemoglobin 13.3 g/dL (13.5-17.5); IMMATURE GRAN ABSOLUTE AUTO 0.07 K/mm3 (0.00-0.10); IMMATURE GRAN PERCENT AUTO 0 % (0-1); LYMPHOCYTES PERCENT AUTO 9 % (21-46); MONOCYTES ABSOLUTE AUTO 1.54 K/mm3 (0.16-1.47); MONOCYTES PERCENT AUTO 9 % (4-13); Mean Corpuscular HGB 31.1 pg (26.0-34.0); Mean Corpuscular HGB Conc 32.8 g/dL (31.5-36.5); Mean Corpuscular Volume 95 fL (80-100); Mean Platelet Volume 9.9 fL (9.1-12.4); NEUTROPHILS ABSOLUTE AUTO 14.86 K/mm3 (1.96-9.15); NEUTROPHILS PERCENT AUTO 82 % (41-73); Platelet Count 235 K/mm3 (150-400); RDW Standard Deviation 42.1 fL (35.1-46.3); Red Blood Cell Count 4.27 M/mm3 (4.30-5.90); White Blood Cell Count 18.19 K/mm3 (4.00-11.30)
[2024-08-08 04:55] LABS: Albumin, Blood 2.8 g/dL (3.4-5.0); Albumin/Globulin Ratio 0.7 (0.8-1.8); Bilirubin, Total 0.7 mg/dL (0.1-1.0); Bun/Creatinine Ratio 18.4 (12.0-20.0); Calcium, Blood 9.6 mg/dL (8.5-10.1); Creatinine, Blood 0.98 mg/dL (0.60-1.20); Globulin, Blood 4.2 g/dL (2.2-4.0); Potassium, Blood 4.1 mmol/L (3.5-5.5)
[2024-08-08] MEDS ORDERED: Levothyroxine Sodium 0.088 MG Tab PO SCH (06:00)
[2024-08-08] MEDS ORDERED: ALBU90OI INH (06:33)
[2024-08-08] MEDS ORDERED: Albuterol 2.5 MG/3 ML VIAL INH PRN (06:50)
--- NOTE | 2024-08-08 07:40 | NUR ---
END OF SHIFT SUMMARY PT HAS NOT BEEN GETTING TOO DROWSY WITH PAIN MEDS. HE WAS A LITTLE LETHARGIC YESTERDAY AFTERNOON BUT THIS WAS MOST LIKELY DUE TO HIM NOT SLEEPING FOR A FEW DAYS BECAUSE OF PAIN. HE SAYS THE ORAL DILAUDID IS THE ONLY THING THAT HAS WORKED FOR HIS PAIN. HE SAYS IV FENTANYL AND IV MORPHINE DIDNT WORK. HE HAS BEEN REQUIRING 2-4L NC BECAUSE HE DOES NOT WANT TO TAKE A DEEP BREATH. WE DISCUSSED MULTIPLE TIMES THE IMPORTANCE OF OVERRIDING THE URGE TO BREATH SHALLOW. HE UNDERSTANDS THAT HE HAS PNUEMONIA AND IS SUPPOSED TO TAKE DEEPER BREATHS BUT HE IS VERY ANXIOUS TO DO SO.
[2024-08-08 08:05] VITALS: BP 123/83
[2024-08-08] MEDS ORDERED: Enoxaparin 40 MG/0.4 ML SYR SC SCH (09:00)
[2024-08-08] MEDS ORDERED: Aspirin 81 MG Chew PO SCH (09:00)
[2024-08-08] MEDS ORDERED: NS 250 ML IV PRN (09:00)
[2024-08-08] MEDS ORDERED: Azithromycin 500 MG in NS 250 ML IV SCH (09:00)
[2024-08-08] MEDS ORDERED: Ketorolac Tromethamine 30mg Vial IV PRN (11:35)
[2024-08-08] MEDS ORDERED: Azithromycin 250 MG Tab PO SCH (12:00)
[2024-08-08] MEDS ORDERED: CefTRIAXone Sodium 2,000 MG in NS 100 ML IV SCH (12:00)
[2024-08-08] MEDS ORDERED: Acetaminophen 325 MG TABLET PO SCH (12:00)
[2024-08-08 14:59] VITALS: BP 132/81
[2024-08-08] MEDS ORDERED: HADLIMA(CF40 MG/0.1 SC (15:08)
[2024-08-08] MEDS ORDERED: ASPERFLEX1 EACH TOP (15:08)
--- NOTE | 2024-08-08 18:26 | NUR ---
SHIFT SUMMARY PT A&OX4, VSS, ON 2L O2 NC, TOLERATING PO, STANDS AT BEDSIDE TO VOID, VIA URINAL, AND PAIN MANAGED PER EMAR. PT CONT TO BE WEAK, BUT STATES PAIN MANAGEMENT IMPROVED. NO OTHER ACUTE CHANGES. CALL LIGHT WITHIN REACH AND PT ABLE TO MAKE NEEDS KNOWN.
[2024-08-08 21:33] VITALS: BP 146/86
[2024-08-09] MEDS ORDERED: Ipratropium/Albuterol SulF 2.5-0.5MG/3 ML Amp INH SCH (03:25)
[2024-08-09 03:45] VITALS: BP 123/80
[2024-08-09 04:53] LABS: BASOPHILS ABSOLUTE AUTO 0.09 K/mm3 (0.00-0.23); BASOPHILS PERCENT AUTO 1 % (0-2); EOSINOPHILS ABSOLUTE AUTO 0.26 K/mm3 (0.00-0.68); EOSINOPHILS PERCENT AUTO 2 % (0-6); Hemoglobin 12.7 g/dL (13.5-17.5); IMMATURE GRAN ABSOLUTE AUTO 0.06 K/mm3 (0.00-0.10); IMMATURE GRAN PERCENT AUTO 0 % (0-1); LYMPHOCYTES ABSOLUTE AUTO 1.28 K/mm3 (0.84-5.20); LYMPHOCYTES PERCENT AUTO 9 % (21-46); MONOCYTES ABSOLUTE AUTO 1.34 K/mm3 (0.16-1.47); MONOCYTES PERCENT AUTO 10 % (4-13); Mean Corpuscular HGB 30.8 pg (26.0-34.0); Mean Corpuscular HGB Conc 32.6 g/dL (31.5-36.5); Mean Corpuscular Volume 95 fL (80-100); Mean Platelet Volume 9.9 fL (9.1-12.4); NEUTROPHILS ABSOLUTE AUTO 11.03 K/mm3 (1.96-9.15); NEUTROPHILS PERCENT AUTO 79 % (41-73); Platelet Count 228 K/mm3 (150-400); RDW Coefficient Variation 11.9 % (11.7-14.2); RDW Standard Deviation 41.5 fL (35.1-46.3); Red Blood Cell Count 4.12 M/mm3 (4.30-5.90); White Blood Cell Count 14.06 K/mm3 (4.00-11.30)
[2024-08-09 05:13] LABS: Bun/Creatinine Ratio 22.7 (12.0-20.0); Calcium, Blood 9.2 mg/dL (8.5-10.1); Creatinine, Blood 0.75 mg/dL (0.60-1.20)
[2024-08-09 07:34] VITALS: BP 148/79
[2024-08-09] MEDS ORDERED: Ketorolac Tromethamine 30mg Vial IV ONE (08:00)
[2024-08-09] MEDS ORDERED: Lidocaine 4% 1 Patch TOP SCH (09:00)
[2024-08-09 15:25] VITALS: BP 126/76
--- NOTE | 2024-08-09 17:30 | NUR ---
SHIFT SUMMARY ATTEMPT TO TITRATE O2 UNSUCCESSFUL. PT DESAT INTO THE LOW 80'S. PT CONT TO REMAIN ON 2L O2 NC. PAIN MANAGED PER EMAR. PT ABLE TO AMB AROUND THE ROOM THIS SHIFT. NO OTHER ACUTE CHANGES. CALL LIGHT WITHIN REACH AND PT ABLE TO MAKE NEEDS KNOWN.
[2024-08-09 19:55] VITALS: BP 135/83
[2024-08-10 03:04] VITALS: BP 126/68
[2024-08-10 05:23] LABS: BASOPHILS ABSOLUTE AUTO 0.06 K/mm3 (0.00-0.23); BASOPHILS PERCENT AUTO 0 % (0-2); EOSINOPHILS ABSOLUTE AUTO 0.14 K/mm3 (0.00-0.68); EOSINOPHILS PERCENT AUTO 1 % (0-6); Hemoglobin 12.5 g/dL (13.5-17.5); IMMATURE GRAN ABSOLUTE AUTO 0.08 K/mm3 (0.00-0.10); IMMATURE GRAN PERCENT AUTO 1 % (0-1); LYMPHOCYTES PERCENT AUTO 7 % (21-46); MONOCYTES ABSOLUTE AUTO 1.19 K/mm3 (0.16-1.47); MONOCYTES PERCENT AUTO 8 % (4-13); Mean Corpuscular HGB 30.9 pg (26.0-34.0); Mean Corpuscular HGB Conc 32.9 g/dL (31.5-36.5); Mean Corpuscular Volume 94 fL (80-100); Mean Platelet Volume 10.6 fL (9.1-12.4); NEUTROPHILS ABSOLUTE AUTO 11.63 K/mm3 (1.96-9.15); NEUTROPHILS PERCENT AUTO 83 % (41-73); Platelet Count 267 K/mm3 (150-400); RDW Coefficient Variation 11.9 % (11.7-14.2); RDW Standard Deviation 40.7 fL (35.1-46.3); Red Blood Cell Count 4.05 M/mm3 (4.30-5.90)
[2024-08-10 05:43] LABS: Bun/Creatinine Ratio 23.8 (12.0-20.0); Calcium, Blood 9.3 mg/dL (8.5-10.1); Creatinine, Blood 0.76 mg/dL (0.60-1.20); Potassium, Blood 3.8 mmol/L (3.5-5.5)
[2024-08-10 07:42] VITALS: BP 134/82
[2024-08-10] MEDS ORDERED: OxyCODONE HCL 5 MG TAB PO PRN (11:05)
[2024-08-10 15:52] VITALS: BP 142/69
--- NOTE | 2024-08-10 17:46 | NUR ---
SHIFT SUMMARY PT HAD HOME O2 EVAL. PT ON RA DURING THE DAY, BUT REQUIRED 2L O2 NC W/ ACTIVITY. PAIN MANAGED PER EMAR AND IMPROVED FROM YESTERDAY. PT AMB AROUND THE ROOM AND HALLWAY. NO OTHER ACUTE CHANGES. CALL LIGHT WITHIN REACH AND PT ABLE TO MAKE NEEDS KNOWN.
[2024-08-10 20:19] VITALS: BP 143/72
[2024-08-11 05:19] VITALS: BP 129/83
[2024-08-11 05:28] LABS: Hemoglobin 12.4 g/dL (13.5-17.5); Mean Corpuscular HGB 30.8 pg (26.0-34.0); Mean Corpuscular HGB Conc 32.6 g/dL (31.5-36.5); Mean Corpuscular Volume 94 fL (80-100); Platelet Count 297 K/mm3 (150-400); RDW Coefficient Variation 12.2 % (11.7-14.2); RDW Standard Deviation 42.6 fL (35.1-46.3); Red Blood Cell Count 4.03 M/mm3 (4.30-5.90); White Blood Cell Count 14.34 K/mm3 (4.00-11.30)
[2024-08-11 05:48] LABS: Bun/Creatinine Ratio 18.1 (12.0-20.0); Creatinine, Blood 0.72 mg/dL (0.60-1.20); Potassium, Blood 3.7 mmol/L (3.5-5.5)
--- NOTE | 2024-08-11 06:00 | NUR ---
SHIFT SUMMARY NOC PT A/O X 4. PLEASANT AND COOPERATIVE WITH CARE. VSS. AT BEDSIDE. PT STILL ON O2 2L/NC AND REPORTS SOB WITH AMBULATION. PT HAD HOME O2 EVALUATION YESTERDAY AND BALBIRALEX WILL HAVE HOME O2 SETUP PRIOR TO DISCHARGE. PT ON TELE SINUS TACH IN HIGH 90'S AND LOW 100'S. PT DECLINED TAKING BEDTIME ELAVIL AND PEPCID STATNG THAT THEY NO LONGER TAKE RX AT HOME. PT POSSIBLE DISCHARGE HOME TODAY. PT CURRENTLY RESTING WITH BED IN LOWEST POSITION, AND CALL LIGHT WITHIN REACH.
[2024-08-11 07:36] VITALS: BP 123/77
--- NOTE | 2024-08-11 09:03 | NUR ---
Pt sitting up in chair, at bedside, a/ox4, pleasant and cooperative with care, follows commands well, denies pain, states he's feeling good and going home today, lungs are clear t/o, resp even and unlabored, no cough noted, hrr, tele in place running sr to st per monitor, see strip, 1+ edema noted to b/l le, ppp +1, cap refill <3 sec, vs stable, afebrile, piv to lac site is clear and patent, btx4, abd flat soft nontender, voids without diff, skin c/w/d, maew, freedom, call light in reach.
[2024-08-11] MEDS ORDERED: CEFP200 PO (13:04)
[2024-08-11] MEDS ORDERED: ACET325 PO (13:06)
--- NOTE | 2024-08-11 14:06 | NUR ---
pt is being discharged to home, went over discharge instructions with him, he verbalized understanding, new medications faxed to his pharmacy, iv removed intact, he has o2 delivered, will leave via wheelchair.
--- NOTE | 2024-08-11 15:00 | NUR ---
Pt has been discharged to home with home health, iv removed intact, went over discharge instructions with him and his , they verbalized understanding, new medications were faxed to his pharmacy, left via wheelchair with gis web developer and in attendence with all his belongings.
== END 2024-08-11 15:07 | disposition home or self-care (01) | DRG 871 ==
LOC: ER 07:16 → MEDS 07:17 → ENPENDDIS 08-11 13:08 → MEDS 08-11 15:07
PROVIDERS: Emergency Medicine; ADMIT Hospitalist
DX: A41.9 Sepsis, unspecified organism (principal); J15.69 Pneumonia due to other Gram-negative bacteria; J96.01 Acute respiratory failure with hypoxia; J44.0 Chronic obstructive pulmonary disease with (acute) lower respiratory infection; I10 Essential (primary) hypertension; E03.9 Hypothyroidism, unspecified; G43.909 Migraine, unspecified, not intractable, without status migrainosus; K58.9 Irritable bowel syndrome, unspecified; I48.0 Paroxysmal atrial fibrillation; F17.220 Nicotine dependence, chewing tobacco, uncomplicated; R91.1 Solitary pulmonary nodule; M54.9 Dorsalgia, unspecified; G89.29 Other chronic pain; Z91.040 Latex allergy status; Z79.82 Long term (current) use of aspirin; Z79.890 Hormone replacement therapy; Z79.01 Long term (current) use of anticoagulants; Z79.899 Other long term (current) drug therapy
CPT/HCPCS: 36415; 71046; 80048; 80053; 83605; 84484; 85025; 85027; 87040; 93005; 93010; 94640; 94660; 94664; 94761; 94762; 96365; 96367; 96375; 96376; 97110; 97116; 97162; 97530; 99285-25; A9270; G0378; J0456; J0696; J1885; J1940; J2270; J7050

== ENCOUNTER 2024-08-19 17:24 | Inpatient (IN) | payer OTHER ==
[~2024-08-19] VITALS: Ht 177.8 cm; Wt 127.3 kg
[~2024-08-19 17:24] MED LIST changes: +ACET325 PO; +ALBU90OI INH; +ASPERFLEX1 EACH TOP; +CEFP200 PO; +HADLIMA(CF40 MG/0.1 SC
[2024-08-19 18:10] LABS: BASOPHILS ABSOLUTE AUTO 0.09 K/mm3 (0.00-0.23); BASOPHILS PERCENT AUTO 1 % (0-2); EOSINOPHILS ABSOLUTE AUTO 0.21 K/mm3 (0.00-0.68); EOSINOPHILS PERCENT AUTO 2 % (0-6); Hematocrit 34.4 % (37.0-53.0); Hemoglobin 11.3 g/dL (13.5-17.5); IMMATURE GRAN PERCENT AUTO 1 % (0-1); LYMPHOCYTES PERCENT AUTO 13 % (21-46); MONOCYTES ABSOLUTE AUTO 0.79 K/mm3 (0.16-1.47); MONOCYTES PERCENT AUTO 7 % (4-13); Mean Corpuscular HGB 30.7 pg (26.0-34.0); Mean Corpuscular HGB Conc 32.8 g/dL (31.5-36.5); Mean Corpuscular Volume 94 fL (80-100); Mean Platelet Volume 9.3 fL (9.1-12.4); NEUTROPHILS ABSOLUTE AUTO 8.68 K/mm3 (1.96-9.15); NEUTROPHILS PERCENT AUTO 76 % (41-73); Platelet Count 423 K/mm3 (150-400); RDW Standard Deviation 41.7 fL (35.1-46.3); Red Blood Cell Count 3.68 M/mm3 (4.30-5.90); White Blood Cell Count 11.37 K/mm3 (4.00-11.30)
[2024-08-19 18:25] LABS: International Normalized Ratio 1.06; Prothrombin Time Results 11.3 Sec (9.7-11.5)
[2024-08-19] MEDS ORDERED: Clindamycin 900mg in D5W 50ML 50 ML IV ONE (18:25)
[2024-08-19] MEDS ORDERED: Cefepime HCl 2,000 MG in NS 100 ML IV ONE (18:25)
[2024-08-19 18:39] LABS: Albumin, Blood 2.1 g/dL (3.4-5.0); Albumin/Globulin Ratio 0.5 (0.8-1.8); Bilirubin, Total 0.2 mg/dL (0.1-1.0); Bun/Creatinine Ratio 17.8 (12.0-20.0); Calcium, Blood 8.3 mg/dL (8.5-10.1); Creatinine, Blood 0.68 mg/dL (0.60-1.20); Globulin, Blood 4.4 g/dL (2.2-4.0); Potassium, Blood 4.2 mmol/L (3.5-5.5); Total Protein, Blood 6.5 g/dL (6.4-8.2)
[2024-08-19] MEDS ORDERED: Vancomycin HCL 2,500 MG in NS 500 ML IV ONE (18:45)
[2024-08-19] MEDS ORDERED: Ipratropium/Albuterol SulF 2.5-0.5MG/3 ML Amp INH PRN (20:05)
[2024-08-19] MEDS ORDERED: FLU VACC TS2024-25(6MOS UP)/PF 45 MCG/0.5 ML SYRINGE IM SCH (20:05)
[2024-08-19] MEDS ORDERED: Ondansetron HCl 2 MG / ML 2ML Vial IV PRN (20:05)
[2024-08-19] MEDS ORDERED: Piperacillin/Tazobactam Sod 4.5 GM in NS 100 ML IV SCH (21:00)
[2024-08-19] MEDS ORDERED: NS 250 ML IV PRN (22:35)
[2024-08-19 22:37] VITALS: BP 160/95
[2024-08-19] MEDS ORDERED: IBUP600 (22:43)
[2024-08-19] MEDS ORDERED: OXYC5 PO (23:06)
[2024-08-19] MEDS ORDERED: FentaNYL Citrate 50 MCG/ML 2 ML Injection IV PRN (23:20)
[2024-08-20 02:00] VITALS: BP 153/88
[2024-08-20 05:41] LABS: BASOPHILS PERCENT AUTO 1 % (0-2); EOSINOPHILS ABSOLUTE AUTO 0.18 K/mm3 (0.00-0.68); EOSINOPHILS PERCENT AUTO 2 % (0-6); Hematocrit 33.6 % (37.0-53.0); Hemoglobin 10.9 g/dL (13.5-17.5); IMMATURE GRAN ABSOLUTE AUTO 0.08 K/mm3 (0.00-0.10); IMMATURE GRAN PERCENT AUTO 1 % (0-1); LYMPHOCYTES ABSOLUTE AUTO 1.51 K/mm3 (0.84-5.20); LYMPHOCYTES PERCENT AUTO 14 % (21-46); MONOCYTES ABSOLUTE AUTO 0.84 K/mm3 (0.16-1.47); MONOCYTES PERCENT AUTO 8 % (4-13); Mean Corpuscular HGB 30.6 pg (26.0-34.0); Mean Corpuscular HGB Conc 32.4 g/dL (31.5-36.5); Mean Corpuscular Volume 94 fL (80-100); Mean Platelet Volume 9.2 fL (9.1-12.4); NEUTROPHILS ABSOLUTE AUTO 7.88 K/mm3 (1.96-9.15); NEUTROPHILS PERCENT AUTO 74 % (41-73); Platelet Count 422 K/mm3 (150-400); RDW Standard Deviation 42.2 fL (35.1-46.3); Red Blood Cell Count 3.56 M/mm3 (4.30-5.90); White Blood Cell Count 10.59 K/mm3 (4.00-11.30)
[2024-08-20 06:07] LABS: Albumin, Blood 2.1 g/dL (3.4-5.0); Albumin/Globulin Ratio 0.5 (0.8-1.8); Bilirubin, Total 0.5 mg/dL (0.1-1.0); Calcium, Blood 8.7 mg/dL (8.5-10.1); Creatinine, Blood 0.75 mg/dL (0.60-1.20); Globulin, Blood 4.4 g/dL (2.2-4.0); Total Protein, Blood 6.5 g/dL (6.4-8.2)
[2024-08-20 07:30] VITALS: BP 147/86
[2024-08-20 08:48] VITALS: BP 159/86
[2024-08-20] MEDS ORDERED: Vancomycin HCL 2,000 MG in NS 500 ML IV SCH (09:00)
[2024-08-20] MEDS ORDERED: Atenolol 50 MG Tab PO SCH (10:00)
[2024-08-20] MEDS ORDERED: Acetaminophen 325 MG TABLET PO PRN (10:00)
[2024-08-20] MEDS ORDERED: Albuterol HFA200 ACT/6.7 GM INH INH PRN (10:10)
[2024-08-20 10:19] VITALS: BP 144/90
[2024-08-20 10:47] LABS: Automated BF WBC Count 1.008 K/mm3 (0-999)
[2024-08-20 11:38] LABS: Albumin, Body Fluid 1.7 g/dL; Glucose, Body Fluid 23 mg/dL; Triglycerides, Body Fluid 37 mg/dL
[2024-08-20 11:41] LABS: Body Fluid WBC Count 1008 /mm3 (0-999)
[2024-08-20 11:57] LABS: Lactate Dehydrogenase, Body Fl 2655 U/L; Protein, Body Fluid 4.2 g/dL
[2024-08-20 12:06] LABS: pH, Body Fluid 7.9
[2024-08-20 12:39] LABS: RBC Count, Body Fluid 191 /mm3 (0-0)
[2024-08-20 12:42] LABS: Appearance, Body Fluid Hazy (Clear); Color, Body Fluid Yellow (None-Yellow); Total Cell Count, Body Fluid 100
[2024-08-20 15:31] VITALS: BP 140/88
--- NOTE | 2024-08-20 17:51 | NUR ---
SHIFT SUMMARY: PATIENT A/OX4, PLEASANT AND COOPERATIVE c CARE. PATIENT DENIES CP/PRESSURE, N/V AND DIZZINESS. PATIENT ON TELE, SR HR IN THE 60'S BPM. PATIENT HAD HIS THORA DONE AND CHEST TUBE IN PLACED TO MID BACK BY DR. SAHU (DYE MAKER) THIS AM, TOLERATED WELL. PATIENT CHEST TUBE CONNECTED TO SUCTION c 130 MLS SEROSANGUINEOUS PLEURAL FLUID IN THE CANISTER. PATIENT ON 2L O2 VIA NC, SATTING 95-98%. PATIENT MEDICATED FOR PAIN TO BACK-CHEST TUBE SITE PER EMAR c GOOD EFFECT. PATIENT HAS GREAT APPETITE, CONTINENT OF BLADDER AND USES URINAL T/O SHIFT. PATIENT RECEIVED IV ABX/SCHEDULED MEDS PER EMAR. VITAL SIGNS REVIEWED. CALL LIGHT IN REACH. PATIENT SPOUSE AT BEDSIDE T/O SHIFT.
[2024-08-20 19:20] VITALS: BP 150/85
[2024-08-20] MEDS ORDERED: Enoxaparin 40 MG/0.4 ML SYR SC SCH (20:00)
[2024-08-20] MEDS ORDERED: FentaNYL Citrate 50 MCG/ML 2 ML Injection IV PRN (21:40)
[2024-08-21 03:03] VITALS: BP 144/93
--- NOTE | 2024-08-21 07:16 | NUR ---
WINEMAKER SUMMARY CT OUTPUT 30ML OVERNIGHT. PT HAS BEEN VERY PAINFUL SINCE CHEST TUBE PLACEMENT. 2L O2. NEW IV PLACED. PT HAD BM. AT BEDSIDE. PT DID NOT SLEEP WELL. HE HAS HAD A HARD TIME GETTING COMFORTABLE. PT TAKES LASIX "PRN" AT HOME FOR LEG SWELLING. PT HAS 2+ LE EDEMA TODAY. PASSED ON TO DAY SHIFT NURSE TO CONSIDER ASKING MD FOR A DOSE OF LASIX TODAY.
[2024-08-21 07:33] VITALS: BP 138/83
[2024-08-21] MEDS ORDERED: Alteplase 1 MG/ML 10 MG,NS 30 ML in Syringe 1 SYR XX SCH ×2 (08:00→20:30)
[2024-08-21] MEDS ORDERED: Dornase Alfa 5 MG,NS 25 ML in Syringe 1 SYR XX SCH ×2 (08:00→20:30)
[2024-08-21 08:41] LABS: BASOPHILS ABSOLUTE AUTO 0.12 K/mm3 (0.00-0.23); BASOPHILS PERCENT AUTO 1 % (0-2); EOSINOPHILS ABSOLUTE AUTO 0.24 K/mm3 (0.00-0.68); EOSINOPHILS PERCENT AUTO 3 % (0-6); Hematocrit 34.7 % (37.0-53.0); Hemoglobin 11.2 g/dL (13.5-17.5); IMMATURE GRAN ABSOLUTE AUTO 0.06 K/mm3 (0.00-0.10); IMMATURE GRAN PERCENT AUTO 1 % (0-1); LYMPHOCYTES ABSOLUTE AUTO 1.51 K/mm3 (0.84-5.20); LYMPHOCYTES PERCENT AUTO 17 % (21-46); MONOCYTES ABSOLUTE AUTO 0.68 K/mm3 (0.16-1.47); MONOCYTES PERCENT AUTO 8 % (4-13); Mean Corpuscular HGB 30.6 pg (26.0-34.0); Mean Corpuscular HGB Conc 32.3 g/dL (31.5-36.5); Mean Corpuscular Volume 95 fL (80-100); Mean Platelet Volume 9.3 fL (9.1-12.4); NEUTROPHILS ABSOLUTE AUTO 6.51 K/mm3 (1.96-9.15); NEUTROPHILS PERCENT AUTO 71 % (41-73); Platelet Count 404 K/mm3 (150-400); RDW Coefficient Variation 11.9 % (11.7-14.2); RDW Standard Deviation 41.6 fL (35.1-46.3); Red Blood Cell Count 3.66 M/mm3 (4.30-5.90); White Blood Cell Count 9.12 K/mm3 (4.00-11.30)
--- NOTE | 2024-08-21 08:46 | NUR ---
DR DE LUNA TO BEDSIDE FOR TPN INJECTION FOR OBSTRUCTED CHEST TUBE. VERBAL ORDER TO ADMINISTER 50MCG FENTANYL. UPON ADMINISTERING, VERBAL ORDER TO LOWER DOSE TO 25MCG. NEVIN SANTACRUZ RN, AT BEDSIDE WITH THIS RN PROVIDED WASTE. TUBE CLAMPED AT 0835. PER PROVIDER, CALL HIM IN ONE HOUR TO FOLLOW-UP AND UNCLAMP.
[2024-08-21 08:55] LABS: Albumin, Blood 2.1 g/dL (3.4-5.0); Albumin/Globulin Ratio 0.5 (0.8-1.8); Bilirubin, Total 0.5 mg/dL (0.1-1.0); Bun/Creatinine Ratio 11.2 (12.0-20.0); Calcium, Blood 8.6 mg/dL (8.5-10.1); Creatinine, Blood 0.8 mg/dL (0.60-1.20); Globulin, Blood 4.5 g/dL (2.2-4.0); Potassium, Blood 4.3 mmol/L (3.5-5.5); Total Protein, Blood 6.6 g/dL (6.4-8.2)
[2024-08-21] MEDS ORDERED: Levothyroxine Sodium 0.088 MG Tab PO SCH (09:00)
[2024-08-21 09:49] LABS: Vancomycin, Trough 20.6 ug/mL (5.0-10.0)
[2024-08-21] MEDS ORDERED: FentaNYL Citrate 50 MCG/ML 2 ML Injection IV ONE (09:55)
[2024-08-21] MEDS ORDERED: Metoclopramide HCl 5MG / ML 2ML Vial IV ONE (10:00)
[2024-08-21] MEDS ORDERED: Vancomycin HCL 1,500 MG in NS 250 ML IV SCH (10:00)
--- NOTE | 2024-08-21 10:04 | NUR ---
DR. DE LUNA APPROACHED DESK AND ASKED FOR FENTANYL 50MCG STAT FOR PATIENT HE WAS DOING CHEST TUBE SUCTION. MED PULLED AND ADMINISTERED STAT AFTER VERBAL ORDER CONFIRMED WITH PROVIDER.
[2024-08-21] MEDS ORDERED: Ketorolac Tromethamine 15mg Vial IV ONE (10:05)
[2024-08-21] MEDS ORDERED: OxyCODONE HCL 5 MG TAB PO PRN (10:50)
[2024-08-21 15:15] VITALS: BP 132/81
--- NOTE | 2024-08-21 18:28 | NUR ---
SHIFT SUMMARY: PATIENT A/OX4, PLEASANT AND COOPERATIVE c CARE. PATIENT DENIES CP/PRESSURE, N/V AND DIZZINESS. PATIENT ON TELE SR HR IN THE 70'S TO 90'S BPM. PATIENT MEDICATED FOR PAIN TO CT SITE PER EMAR c MOD EFFECT. PATIENT S/P TPA AND DNA VIA CT DONE BY DR. YEH THIS AM. PATIENT HAD A TOTAL OF 470 MLS SEROSAGUINEOUS PLEURAL FLUID IN THE CANISTER THIS SHIFT. PATIENT HAS BEEN USING IS T/O THE DAY AND REPORTS PRODUCTIVE COUGH. PATIENT REPORTS HE SLEPT FOR A COUPLE OF HRS THIS PM. PATIENT RECEIVED IV ABX/SCHEDULED MEDS PER EMAR. VITAL SIGNS REVIEWED. CALL LIGHT IN REACH.
[2024-08-21 19:57] VITALS: BP 122/100
[2024-08-21 19:59] VITALS: BP 131/75
[2024-08-21] MEDS ORDERED: Ketorolac Tromethamine 15mg Vial IV PRN (23:05)
[2024-08-22 03:13] VITALS: BP 151/104
[2024-08-22 05:05] LABS: BASOPHILS ABSOLUTE AUTO 0.15 K/mm3 (0.00-0.23); BASOPHILS PERCENT AUTO 1 % (0-2); EOSINOPHILS PERCENT AUTO 3 % (0-6); Hematocrit 35.7 % (37.0-53.0); Hemoglobin 11.4 g/dL (13.5-17.5); IMMATURE GRAN ABSOLUTE AUTO 0.07 K/mm3 (0.00-0.10); IMMATURE GRAN PERCENT AUTO 1 % (0-1); LYMPHOCYTES PERCENT AUTO 13 % (21-46); MONOCYTES ABSOLUTE AUTO 1.11 K/mm3 (0.16-1.47); MONOCYTES PERCENT AUTO 11 % (4-13); Mean Corpuscular HGB 30.6 pg (26.0-34.0); Mean Corpuscular HGB Conc 31.9 g/dL (31.5-36.5); Mean Corpuscular Volume 96 fL (80-100); Mean Platelet Volume 8.8 fL (9.1-12.4); NEUTROPHILS ABSOLUTE AUTO 7.57 K/mm3 (1.96-9.15); NEUTROPHILS PERCENT AUTO 71 % (41-73); Platelet Count 400 K/mm3 (150-400); RDW Coefficient Variation 12.1 % (11.7-14.2); RDW Standard Deviation 42.5 fL (35.1-46.3); Red Blood Cell Count 3.73 M/mm3 (4.30-5.90)
[2024-08-22 05:45] LABS: Albumin, Blood 1.9 g/dL (3.4-5.0); Albumin/Globulin Ratio 0.4 (0.8-1.8); Bilirubin, Total 0.4 mg/dL (0.1-1.0); Bun/Creatinine Ratio 7.2 (12.0-20.0); Calcium, Blood 8.5 mg/dL (8.5-10.1); Creatinine, Blood 2.5 mg/dL (0.60-1.20); Globulin, Blood 4.3 g/dL (2.2-4.0); Potassium, Blood 4.4 mmol/L (3.5-5.5); Total Protein, Blood 6.2 g/dL (6.4-8.2)
[2024-08-22 07:36] VITALS: BP 143/85
--- NOTE | 2024-08-22 08:12 | NUR ---
BIBLICAL LANGUAGES PROFESSOR SUMMARY CHEST TUBE OUTPUT 250ML FOR 12 HOUR SHIFT. HEALTHCARE APPLICATIONS ANALYST AT BEDSIDE AT 1999 TO INSTIL CATHFLO AND PULMOZYME INTO CHEST TUBE. MEDICINE INSTILLED AT 2019. MD INSTRUCTED ME TO WAIT 60 MINUTES AND THEN OPEN CLAMP AND THEN WAIT ANOTHER 60 MINUTES AND THEN AUTOMOTIVE TECHNOLOGY INSTRUCTOR CHEST TUBE TO -10CM SUCTION. CHEST TUBE UNCLAMPED AT 2119 AND THEN CHEST TUBE HOOKED BACK UP TO WALL SUCTION AT 2219. PT TOLERATED PROCEDURE WELL.
[2024-08-22] MEDS ORDERED: Potassium Chloride 10 Meq Tablet SA PO SCH (09:00)
[2024-08-22] MEDS ORDERED: Furosemide 20 MG Tab PO SCH (09:00)
[2024-08-22] MEDS ORDERED: Lactated Ringer's 1,000 ML IV SCH ×2 (11:00→21:20)
[2024-08-22 11:37] LABS: Bun/Creatinine Ratio 5.8 (12.0-20.0); Calcium, Blood 8.8 mg/dL (8.5-10.1); Creatinine, Blood 3.11 mg/dL (0.60-1.20); Potassium, Blood 4.7 mmol/L (3.5-5.5)
[2024-08-22] MEDS ORDERED: Mometasone/Formoterol MDI 200/5 mcg 13 GM INH SCH (11:50)
--- NOTE | 2024-08-22 12:17 | NUR ---
ALESHIA UPDATE. THIS NURSE, BELLE, RN CALLED FOR CARDIOTHORACIC SURGEON CONSULT AT 1145 ON 08/22/24 TO [facility]. IMAGES PUSHED VIA IMAGING DEPARTMENT AT 11:40. THIS NURSE CALLED TO UPDATE DR YEH WHO STATED THAT INSTEAD OF A CONSULT HE WANTED TO INITIATE A TRANSFER. THIS NURSE CALLED TRANSFER CENTER AT [facility] BACK TO UPDATE. THEY WILL CALL DR YEH ONCE THEIR CARDIOTHORACIC SURGEON IS OUT OF A PROCEDURE AND AVAILABLE. ALSO STATING THAT THEY HAVE "ZERO" CAPACITY AT THIS POINT BUT MIGHT HAVE SOME DISCHARGES TODAY. AT 11:45 DR YEH ALSO GIVEN THE DOCTOR TO DOCTOR LINE NUMBER FOR [facility] IN [place] IF HE WANTS TO CALL AND ATTEMPT TO BEGIN THE TRANSFER TO THAT FACILITY WELL. PRIMARY NURSE DIOGENES UPDATED AT THIS TIME.
[2024-08-22] MEDS ORDERED: Ampicillin Sod/Sulbactam Sod 1.5 GM in NS 100 ML IV SCH (14:00)
[2024-08-22 15:47] VITALS: BP 141/95
--- NOTE | 2024-08-22 17:41 | NUR ---
SHIFT SUMMARY PT IS A/OX4. CHEST TUBE OUTPUT OF 60 ML FOR THE SHIFT. BOILER FITTER HELD THE CATHFLO AND PULMOZYME THIS MORNING. CHEST TUBE REMAINS HOOKED UP TO -10CM SUCTION. PT REMAINS ON 2L NC WITH SATS MAINTAINING >94%. DECREASED KIDNEY FUNCTION NOTED ON [facility], PROVIDER CONSULT FOR DR. ENAMORADO, PHYSICAN NOTIFIED. CT SCAN AND ULTRASOUND OF THE KIDNEYS COMPLETED TODAY. [facility] CONTACTED TODAY FOR POSSIBLE TRANSFER FOR A CARDIOTHORACIC CONSULT IF A BED IS AVAILABLE. CHEST TUBE TO BE REMOVED TOMORROW. PT MEDICATED WITH OXYCODONE X2 AND FENTANYL X1 THIS SHIFT PER MAR FOR PAIN AT THE CHEST TUBE INSERTION SITE. PT AND FAMILY ABLE TO MAKE NEEDS KNOWN.
[2024-08-22 19:15] VITALS: BP 131/88
[2024-08-22 20:18] LABS: Bun/Creatinine Ratio 5.9 (12.0-20.0); Calcium, Blood 8.8 mg/dL (8.5-10.1); Creatinine, Blood 3.56 mg/dL (0.60-1.20); Potassium, Blood 4.5 mmol/L (3.5-5.5)
[2024-08-23 03:41] VITALS: BP 135/77
[2024-08-23 03:53] LABS: Source, Urine Voided
[2024-08-23 03:59] LABS: Bilirubin, Urine Neg (Neg); Blood, Urine 4+ (Neg); Glucose Qualitative, Urine Neg (Neg); Ketones, Urine Neg (Neg); Leukocyte Esterase, Urine Neg (Neg); Nitrite, Urine Neg (Neg); Protein, Urine 1+ (Neg); Urobilinogen, Urine NORM (Normal)
[2024-08-23 04:30] LABS: Appearance, Urine Clear (Clear); Bacteria Not Seen /hpf; Color, Urine Yellow (P-Yellow); Red Blood Cells, Urine 0-2 /hpf (0-2); Squamous Epithelial Cells Not Seen /hpf (Few); White Blood Cells, Urine 0-2 /hpf (0-5)
[2024-08-23 05:41] LABS: BASOPHILS ABSOLUTE AUTO 0.12 K/mm3 (0.00-0.23); BASOPHILS PERCENT AUTO 1 % (0-2); EOSINOPHILS ABSOLUTE AUTO 0.27 K/mm3 (0.00-0.68); EOSINOPHILS PERCENT AUTO 3 % (0-6); Hematocrit 34.1 % (37.0-53.0); Hemoglobin 10.9 g/dL (13.5-17.5); IMMATURE GRAN ABSOLUTE AUTO 0.04 K/mm3 (0.00-0.10); IMMATURE GRAN PERCENT AUTO 0 % (0-1); LYMPHOCYTES ABSOLUTE AUTO 1.47 K/mm3 (0.84-5.20); LYMPHOCYTES PERCENT AUTO 15 % (21-46); MONOCYTES ABSOLUTE AUTO 0.81 K/mm3 (0.16-1.47); MONOCYTES PERCENT AUTO 8 % (4-13); Mean Corpuscular HGB 30.4 pg (26.0-34.0); Mean Corpuscular Volume 95 fL (80-100); Mean Platelet Volume 9.1 fL (9.1-12.4); NEUTROPHILS PERCENT AUTO 73 % (41-73); Platelet Count 399 K/mm3 (150-400); RDW Coefficient Variation 12.1 % (11.7-14.2); RDW Standard Deviation 42.4 fL (35.1-46.3); Red Blood Cell Count 3.59 M/mm3 (4.30-5.90); White Blood Cell Count 10.11 K/mm3 (4.00-11.30)
[2024-08-23] MEDS ORDERED: Levothyroxine Sodium 0.088 MG Tab PO SCH (06:00)
[2024-08-23 07:00] LABS: Albumin, Blood 1.9 g/dL (3.4-5.0); Albumin/Globulin Ratio 0.4 (0.8-1.8); Bilirubin, Total 0.4 mg/dL (0.1-1.0); Bun/Creatinine Ratio 5.4 (12.0-20.0); Calcium, Blood 8.5 mg/dL (8.5-10.1); Creatinine, Blood 4.06 mg/dL (0.60-1.20); Globulin, Blood 4.3 g/dL (2.2-4.0); Phosphorus, Blood 5.3 mg/dL (2.5-4.9); Potassium, Blood 4.8 mmol/L (3.5-5.5); Total Protein, Blood 6.2 g/dL (6.4-8.2)
[2024-08-23] MEDS ORDERED: MetroNIDAZOLE 500MG/NS 100 ml 100 ML IV SCH (07:00)
[2024-08-23] MEDS ORDERED: CefTRIAXone Sodium 1,000 MG in NS 100 ML IV SCH (07:00)
[2024-08-23 07:20] VITALS: BP 132/82
[2024-08-23] MEDS ORDERED: NS 1,000 ML IV SCH (08:40)
[2024-08-23] MEDS ORDERED: Tamsulosin HCl 0.4 MG Cap PO SCH (09:00)
[2024-08-23] MEDS ORDERED: NS 500 ML IV ONE (12:35)
[2024-08-23 15:07] VITALS: BP 152/87
--- NOTE | 2024-08-23 18:16 | NUR ---
PT IS A/OX4 AND INDEPENDENT IN THE ROOM. CHEST TUBE REMOVED EARLY THIS AFTERNOON. PT REMAINS ON 2L NC WITH SATS MAINTAINING >94%. OXYCODONE GIVEN X2 AND FENTANYL GIVEN X1 THIS SHIFT FOR PAIN AT THE CHEST TUBE INSERTION SITE. FURTHER DECREASE IN KIDNEY FUNCTION NOTED ON [facility]. PT AND FAMILY ABLE TO MAKE NEEDS KNOWN.
[2024-08-23 20:09] VITALS: BP 141/83
[2024-08-24 02:44] VITALS: BP 144/81
[2024-08-24 06:02] LABS: BASOPHILS PERCENT AUTO 1 % (0-2); EOSINOPHILS ABSOLUTE AUTO 0.27 K/mm3 (0.00-0.68); EOSINOPHILS PERCENT AUTO 4 % (0-6); Hematocrit 32.4 % (37.0-53.0); Hemoglobin 10.3 g/dL (13.5-17.5); IMMATURE GRAN ABSOLUTE AUTO 0.02 K/mm3 (0.00-0.10); IMMATURE GRAN PERCENT AUTO 0 % (0-1); LYMPHOCYTES ABSOLUTE AUTO 1.07 K/mm3 (0.84-5.20); LYMPHOCYTES PERCENT AUTO 15 % (21-46); MONOCYTES ABSOLUTE AUTO 0.66 K/mm3 (0.16-1.47); MONOCYTES PERCENT AUTO 9 % (4-13); Mean Corpuscular HGB 30.2 pg (26.0-34.0); Mean Corpuscular HGB Conc 31.8 g/dL (31.5-36.5); Mean Corpuscular Volume 95 fL (80-100); Mean Platelet Volume 8.9 fL (9.1-12.4); NEUTROPHILS ABSOLUTE AUTO 5.18 K/mm3 (1.96-9.15); NEUTROPHILS PERCENT AUTO 71 % (41-73); Platelet Count 325 K/mm3 (150-400); RDW Coefficient Variation 12.2 % (11.7-14.2); RDW Standard Deviation 42.6 fL (35.1-46.3); Red Blood Cell Count 3.41 M/mm3 (4.30-5.90)
[2024-08-24 06:31] LABS: Albumin, Blood 1.9 g/dL (3.4-5.0); Albumin/Globulin Ratio 0.5 (0.8-1.8); Bilirubin, Total 0.4 mg/dL (0.1-1.0); Bun/Creatinine Ratio 5.8 (12.0-20.0); Calcium, Blood 8.4 mg/dL (8.5-10.1); Creatinine, Blood 4.86 mg/dL (0.60-1.20); Globulin, Blood 3.9 g/dL (2.2-4.0); Phosphorus, Blood 5.3 mg/dL (2.5-4.9); Potassium, Blood 4.5 mmol/L (3.5-5.5); Total Protein, Blood 5.8 g/dL (6.4-8.2)
--- NOTE | 2024-08-24 06:33 | NUR ---
TEST KITCHEN HOME ECONOMIST SUMMARY PT IS MAKING ADEQUATE URINE. NO ACUTE EVENTS OVERNIGHT. FEELS BETTER AFTER CHEST TUBE DISCONTINUATION.
[2024-08-24 07:32] VITALS: BP 144/84
[2024-08-24 15:06] VITALS: BP 148/79
--- NOTE | 2024-08-24 18:09 | NUR ---
SHIFT SUMMARY: PT IS A&OX4/INDEPENDENT; MAKES NEEDS KNOWN, PATIENT'S ASSIST WITH PATIENT'S CARE AND NEEDS. PATIENT ON ROOMAIR TODAY AND TOLERATING WELL; MAINTAINING OXYGEN SATURATION GREATER THAN 92%. PATIENT'S KIDNEY FUNCTION CONTINUES TO BE POOR. PATIENT CONTINUES TO C/O PAIN WHERE HIS CHEST TUBE WAS. HE IS EATING, DRINKING, AND USES THE RESTROOM. PATIENT AMBULATING TO THE RESTROOM; GOAL WAS TO MAKE IT TO THE LOBBY AREA TODAY, BUT WAS NOT OBTAINED. PATIENT DID NOT LEAVE ROOM. PATIENT TAKING A SHOWER NOW. NO SIGNS OR SYMPTOMS OF DISTRESS, PLAN OF CARE ONGOING.
[2024-08-24 19:52] VITALS: BP 138/87
[2024-08-25 03:57] VITALS: BP 140/89
[2024-08-25 04:54] LABS: BASOPHILS ABSOLUTE AUTO 0.11 K/mm3 (0.00-0.23); BASOPHILS PERCENT AUTO 2 % (0-2); EOSINOPHILS ABSOLUTE AUTO 0.33 K/mm3 (0.00-0.68); EOSINOPHILS PERCENT AUTO 4 % (0-6); Hematocrit 34.2 % (37.0-53.0); Hemoglobin 11.4 g/dL (13.5-17.5); IMMATURE GRAN ABSOLUTE AUTO 0.05 K/mm3 (0.00-0.10); IMMATURE GRAN PERCENT AUTO 1 % (0-1); LYMPHOCYTES ABSOLUTE AUTO 0.99 K/mm3 (0.84-5.20); LYMPHOCYTES PERCENT AUTO 13 % (21-46); MONOCYTES PERCENT AUTO 9 % (4-13); Mean Corpuscular HGB 30.6 pg (26.0-34.0); Mean Corpuscular HGB Conc 33.3 g/dL (31.5-36.5); Mean Corpuscular Volume 92 fL (80-100); NEUTROPHILS ABSOLUTE AUTO 5.35 K/mm3 (1.96-9.15); NEUTROPHILS PERCENT AUTO 71 % (41-73); RDW Coefficient Variation 12.4 % (11.7-14.2); RDW Standard Deviation 41.2 fL (35.1-46.3); Red Blood Cell Count 3.73 M/mm3 (4.30-5.90); White Blood Cell Count 7.53 K/mm3 (4.00-11.30)
[2024-08-25 04:57] LABS: Mean Platelet Volume 9.7 fL (9.1-12.4); Platelet Count 256 K/mm3 (150-400)
[2024-08-25 05:25] LABS: Albumin, Blood 2.1 g/dL (3.4-5.0); Albumin/Globulin Ratio 0.5 (0.8-1.8); Bilirubin, Total 0.3 mg/dL (0.1-1.0); Bun/Creatinine Ratio 5.8 (12.0-20.0); Calcium, Blood 8.4 mg/dL (8.5-10.1); Creatinine, Blood 4.97 mg/dL (0.60-1.20); Phosphorus, Blood 4.8 mg/dL (2.5-4.9); Potassium, Blood 4.9 mmol/L (3.5-5.5); Total Protein, Blood 6.1 g/dL (6.4-8.2)
--- NOTE | 2024-08-25 05:50 | NUR ---
SHIFT SUMMARY: Pt is admitted for PNA and is a full code. Is alert and able to make needs know has been IND for ADLs. Pain has been managed with PRN pain management. Jona reports sinus in the 70s.
[2024-08-25 07:27] VITALS: BP 136/80
[2024-08-25] MEDS ORDERED: NS 1,000 ML IV SCH ×2 (11:00→18:40)
[2024-08-25 15:11] VITALS: BP 140/79
--- NOTE | 2024-08-25 17:44 | NUR ---
SHIFT SUMMARY: NO EVENTS OR CHANGES WITH THE PATIENT THROUGHOUT THE SHIFT. HE DID AMBULATE AROUND THE UNIT TODAY AND TOLERATED WELL. HE WAS STARTED ON NORMAL SALINE AT 75ML/HR CONTINOUSLY FOR RENAL FUNCTION. REPEAT CHEST XRAY COMPLETED; PER DR. DAWN OKAY TO NOTIFY PATIENT ON RESULTS. RESPIRATORY/PULMONARY ISSUES IMPROVING; WAITING ON RENAL FUNCTION TO IMPROVE. PATIENT IN HIS ROOM WITH HIS , EATING DINNER, NO SIGNS OR SYMPTOMS OF DISTRESS,PLAN OF CARE ONGOING.
[2024-08-25 20:22] LABS: Source, Urine Voided
[2024-08-25 20:26] LABS: Appearance, Urine Clear (Clear); Bilirubin, Urine Neg (Neg); Blood, Urine 3+ (Neg); Color, Urine Yellow (P-Yellow); Glucose Qualitative, Urine Neg (Neg); Ketones, Urine Neg (Neg); Leukocyte Esterase, Urine 1+ (Neg); Nitrite, Urine Neg (Neg); Protein, Urine Neg (Neg); Urobilinogen, Urine NORM (Normal)
[2024-08-25 21:00] VITALS: BP 150/87
[2024-08-25 21:05] LABS: Bacteria Mod /hpf; Squamous Epithelial Cells Few /hpf (Few); White Blood Cells, Urine 0-2 /hpf (0-5)
[2024-08-25 22:12] LABS: Eosinophils-Raw #,Urine 0
[2024-08-25 22:14] LABS: White Blood Cells Urine 0-2 /hpf (0-5)
[2024-08-26 03:04] VITALS: BP 146/82
--- NOTE | 2024-08-26 05:33 | NUR ---
SHIFT SUMMARY: Pt is admitted for PNA and is a full code. Is alert and able to make needs known has been IND for ADLs. Pain has been managed with PRN pain management. Jona reports sinus in the 70s.
[2024-08-26 05:45] LABS: BASOPHILS PERCENT AUTO 1 % (0-2); EOSINOPHILS ABSOLUTE AUTO 0.43 K/mm3 (0.00-0.68); EOSINOPHILS PERCENT AUTO 5 % (0-6); Hematocrit 34.8 % (37.0-53.0); IMMATURE GRAN ABSOLUTE AUTO 0.03 K/mm3 (0.00-0.10); IMMATURE GRAN PERCENT AUTO 0 % (0-1); LYMPHOCYTES ABSOLUTE AUTO 1.13 K/mm3 (0.84-5.20); LYMPHOCYTES PERCENT AUTO 14 % (21-46); MONOCYTES ABSOLUTE AUTO 0.68 K/mm3 (0.16-1.47); MONOCYTES PERCENT AUTO 8 % (4-13); Mean Corpuscular HGB 30.1 pg (26.0-34.0); Mean Corpuscular HGB Conc 31.6 g/dL (31.5-36.5); Mean Corpuscular Volume 95 fL (80-100); Mean Platelet Volume 9.6 fL (9.1-12.4); NEUTROPHILS ABSOLUTE AUTO 5.97 K/mm3 (1.96-9.15); NEUTROPHILS PERCENT AUTO 72 % (41-73); Platelet Count 325 K/mm3 (150-400); RDW Coefficient Variation 12.3 % (11.7-14.2); RDW Standard Deviation 42.7 fL (35.1-46.3); Red Blood Cell Count 3.66 M/mm3 (4.30-5.90); White Blood Cell Count 8.34 K/mm3 (4.00-11.30)
[2024-08-26 06:11] LABS: Albumin, Blood 2.3 g/dL (3.4-5.0); Albumin/Globulin Ratio 0.5 (0.8-1.8); Bilirubin, Total 0.3 mg/dL (0.1-1.0); Bun/Creatinine Ratio 6.7 (12.0-20.0); Calcium, Blood 8.4 mg/dL (8.5-10.1); Creatinine, Blood 4.65 mg/dL (0.60-1.20); Globulin, Blood 4.3 g/dL (2.2-4.0); Phosphorus, Blood 4.6 mg/dL (2.5-4.9); Potassium, Blood 4.5 mmol/L (3.5-5.5); Total Protein, Blood 6.6 g/dL (6.4-8.2); Uric Acid, Blood 6.9 mg/dL (3.5-7.2)
[2024-08-26 07:33] VITALS: BP 155/92
[2024-08-26] MEDS ORDERED: Tamsulosin HCl 0.4 MG Cap PO SCH (09:00)
[2024-08-26 10:02] LABS: ALBUMIN 2.24 g/dL (3.75-5.01); ALPHA 1 GLOBULIN 0.52 g/dL (0.19-0.46); ALPHA 2 GLOBULIN 0.98 g/dL (0.48-1.05); BETA GLOBULIN 0.76 g/dL (0.48-1.10); TOTAL PROTEIN,SERUM 5.5 g/dL (6.3-8.2)
[2024-08-26] MEDS ORDERED: AMOCLA500 PO (12:32)
[2024-08-26] MEDS ORDERED: DULERA 100 MCG/13 GM INH (12:33)
[2024-08-26] MEDS ORDERED: TAMS.4ER PO (12:33)
[2024-08-26] MEDS ORDERED: VISBIOME 112.51 EACH PO (12:34)
--- NOTE | 2024-08-26 13:17 | NUR ---
DISCHARGE NOTE: PATIENT GOT HIMSELF DRESSED AND COLLECTED BELONGINGS AFTER HIS IV AND TELE WER REMOVED. DISCUSSED DISCHARGE WITH PATIENT WITH HIS FAMILY PRESENT. PATIENT WHEELED DOWN VIA WHEELCHAIR BY AGENCY SALES MANAGEMENT ASSISTANT AND FAMILY. NO SIGNS OR SYMPTOMS OF DISTRESS DURING DISCHARGE.
== END 2024-08-26 13:06 | disposition home or self-care (01) | DRG 871 ==
LOC: ER 17:24 → MEDS 20:01 → ERHOLD 20:01 → MEDS 22:27 → ENPENDDIS 08-26 12:17 → MEDS 08-26 13:06
PROVIDERS: Family Medicine; Hospitalist; Physician Assistant; Student in an Organized Health Care Education/Training Program; ADMIT Internal Medicine
PROC: 3E03329 Introduction of Other Anti-infective into Peripheral Vein, Percutaneous Approach (ICD-10-PCS; 2024-08-19)
PROC: 0W9B30Z Drainage of Left Pleural Cavity with Drainage Device, Percutaneous Approach (ICD-10-PCS; principal; 2024-08-20)
PROC: 3E0L317 Introduction of Other Thrombolytic into Pleural Cavity, Percutaneous Approach (ICD-10-PCS; 2024-08-21)
PROC: 3E0L3GC Introduction of Other Therapeutic Substance into Pleural Cavity, Percutaneous Approach (ICD-10-PCS; 2024-08-21)
DX: A41.9 Sepsis, unspecified organism (principal); J18.9 Pneumonia, unspecified organism; J96.01 Acute respiratory failure with hypoxia; J85.0 Gangrene and necrosis of lung; N17.0 Acute kidney failure with tubular necrosis; J44.0 Chronic obstructive pulmonary disease with (acute) lower respiratory infection; J94.8 Other specified pleural conditions; J91.8 Pleural effusion in other conditions classified elsewhere; I10 Essential (primary) hypertension; I48.0 Paroxysmal atrial fibrillation; K58.9 Irritable bowel syndrome, unspecified; E03.9 Hypothyroidism, unspecified; J43.9 Emphysema, unspecified; G47.33 Obstructive sleep apnea (adult) (pediatric); F17.290 Nicotine dependence, other tobacco product, uncomplicated; G89.29 Other chronic pain; G43.909 Migraine, unspecified, not intractable, without status migrainosus; M54.9 Dorsalgia, unspecified; D64.9 Anemia, unspecified; E66.9 Obesity, unspecified; Z91.040 Latex allergy status; Z79.82 Long term (current) use of aspirin; Z79.890 Hormone replacement therapy; Z79.891 Long term (current) use of opiate analgesic; Z79.1 Long term (current) use of non-steroidal anti-inflammatories (NSAID); Z68.39 Body mass index [BMI] 39.0-39.9, adult
CPT/HCPCS: 36415; 71045; 71046; 71250; 71260; 76770; 80048; 80053; 80202; 81001; 82042; 82550; 82945; 83605; 83615; 83880; 83986; 84100; 84155; 84157; 84165; 84478; 84550; 85025; 85610; 85730; 87040; 87070; 87205; 88108; 88305; 89051; 92610; 94640; 94664; 94760; 96365; 96375; 99285-25; A9270; J0295; J0692; J0696; J1650; J1885; J2543; J2765; J2997; J3010; J3370; J7030; J7040; J7050; J7120; Q9967

== ENCOUNTER 2025-06-12 21:41 | Emergency (ER) | payer OTHER ==
[~2025-06-12] VITALS: Ht 175.3 cm; Wt 129.7 kg
[~2025-06-12 21:41] MED LIST changes: +AMOCLA500 PO; +DULERA 100 MCG/13 GM INH; +IBUP600; +OXYC5 PO; +TAMS.4ER PO; +VISBIOME 112.51 EACH PO
[2025-06-12 22:10] LABS: BASOPHILS ABSOLUTE AUTO 0.11 K/mm3 (0.00-0.23); BASOPHILS PERCENT AUTO 1 % (0-2); EOSINOPHILS ABSOLUTE AUTO 0.24 K/mm3 (0.00-0.68); EOSINOPHILS PERCENT AUTO 3 % (0-6); Hematocrit 46.5 % (37.0-53.0); Hemoglobin 15.5 g/dL (13.5-17.5); IMMATURE GRAN ABSOLUTE AUTO 0.03 K/mm3 (0.00-0.10); IMMATURE GRAN PERCENT AUTO 0 % (0-1); LYMPHOCYTES ABSOLUTE AUTO 2.11 K/mm3 (0.84-5.20); LYMPHOCYTES PERCENT AUTO 25 % (21-46); MONOCYTES ABSOLUTE AUTO 0.47 K/mm3 (0.16-1.47); MONOCYTES PERCENT AUTO 6 % (4-13); Mean Corpuscular HGB Conc 33.3 g/dL (31.5-36.5); Mean Corpuscular Volume 95 fL (80-100); NEUTROPHILS ABSOLUTE AUTO 5.41 K/mm3 (1.96-9.15); NEUTROPHILS PERCENT AUTO 65 % (41-73); NRBC ABSOLUTE 0.00 K/mm3 (0.00-0.02); NRBC Auto 0.0 /100 WBC (0.0-0.2); Platelet Count 178 K/mm3 (150-400); RDW Coefficient Variation 12.4 % (11.7-14.2); RDW Standard Deviation 43.6 fL (35.1-46.3)
[2025-06-12 22:32] LABS: Alanine Aminotransfer (ALT/SGP 28.0 U/L (12-78); Albumin, Blood 3.5 g/dL (3.4-5.0); Albumin/Globulin Ratio 0.9 (0.8-1.8); Anion Gap 7.0 mmol/L (3-11); Aspartate Aminotrans (AST/SGOT 23.0 U/L (12-37); Bilirubin, Total 0.1 mg/dL (0.1-1.0); Blood Urea Nitrogen 30.0 mg/dL (8-24); CO2, Blood 25.0 mmol/L (21-32); Calcium, Blood 9.1 mg/dL (8.5-10.1); Chloride, Blood 111.0 mmol/L (98-108); Creatinine, Blood 1.01 mg/dL (0.60-1.20); Globulin, Blood 3.8 g/dL (2.2-4.0); Glucose, Blood 117.0 mg/dL (70-99); Potassium, Blood 4.4 mmol/L (3.5-5.5); Sodium, Blood 139.0 mmol/L (136-145); Total Protein, Blood 7.3 g/dL (6.4-8.2)
[2025-06-13] MEDS ORDERED: NS 500 ML IV SCH (00:55)
[2025-06-13 02:30] VITALS: BP 123/89
== END 2025-06-13 03:05 | disposition home or self-care (01) ==
LOC: ER 21:41
PROVIDERS: Student in an Organized Health Care Education/Training Program
DX: E86.0 Dehydration (principal); R42 Dizziness and giddiness; R00.2 Palpitations; I10 Essential (primary) hypertension; E03.9 Hypothyroidism, unspecified; I48.0 Paroxysmal atrial fibrillation; J43.9 Emphysema, unspecified; G43.909 Migraine, unspecified, not intractable, without status migrainosus; G47.33 Obstructive sleep apnea (adult) (pediatric); F17.220 Nicotine dependence, chewing tobacco, uncomplicated; Z91.040 Latex allergy status; Z79.82 Long term (current) use of aspirin; Z79.890 Hormone replacement therapy; Z79.899 Other long term (current) drug therapy
CPT/HCPCS: 71046; 80053; 83690; 83880; 84484; 85025; 93005; 93010; 99285-25; J7030

== ENCOUNTER 2025-07-18 13:33 | Emergency (ER) | payer OTHER ==
[~2025-07-18] VITALS: Ht 177.8 cm; Wt 127.0 kg
[2025-07-18 14:23] LABS: BASOPHILS ABSOLUTE AUTO 0.09 K/mm3 (0.00-0.23); BASOPHILS PERCENT AUTO 1 % (0-2); EOSINOPHILS ABSOLUTE AUTO 0.19 K/mm3 (0.00-0.68); EOSINOPHILS PERCENT AUTO 3 % (0-6); Hematocrit 44.3 % (37.0-53.0); Hemoglobin 14.6 g/dL (13.5-17.5); IMMATURE GRAN ABSOLUTE AUTO 0.03 K/mm3 (0.00-0.10); IMMATURE GRAN PERCENT AUTO 1 % (0-1); LYMPHOCYTES ABSOLUTE AUTO 1.80 K/mm3 (0.84-5.20); LYMPHOCYTES PERCENT AUTO 28 % (21-46); MONOCYTES ABSOLUTE AUTO 0.38 K/mm3 (0.16-1.47); MONOCYTES PERCENT AUTO 6 % (4-13); Mean Corpuscular HGB Conc 33.0 g/dL (31.5-36.5); Mean Corpuscular Volume 94 fL (80-100); NEUTROPHILS ABSOLUTE AUTO 4.01 K/mm3 (1.96-9.15); NEUTROPHILS PERCENT AUTO 62 % (41-73); NRBC ABSOLUTE 0.00 K/mm3 (0.00-0.02); NRBC Auto 0.0 /100 WBC (0.0-0.2); Platelet Count 196 K/mm3 (150-400); RDW Coefficient Variation 12.5 % (11.7-14.2); RDW Standard Deviation 43.8 fL (35.1-46.3)
[2025-07-18 14:53] LABS: Alanine Aminotransfer (ALT/SGP 27.0 U/L (12-78); Albumin, Blood 3.7 g/dL (3.4-5.0); Albumin/Globulin Ratio 1.1 (0.8-1.8); Anion Gap 8.0 mmol/L (3-11); Aspartate Aminotrans (AST/SGOT 18.0 U/L (12-37); Bilirubin, Total 0.5 mg/dL (0.1-1.0); Blood Urea Nitrogen 13.0 mg/dL (8-24); CO2, Blood 28.0 mmol/L (21-32); Calcium, Blood 9.1 mg/dL (8.5-10.1); Chloride, Blood 109.0 mmol/L (98-108); Creatinine, Blood 1.02 mg/dL (0.60-1.20); Globulin, Blood 3.5 g/dL (2.2-4.0); Glucose, Blood 113.0 mg/dL (70-99); Potassium, Blood 4.1 mmol/L (3.5-5.5); Sodium, Blood 141.0 mmol/L (136-145); Total Protein, Blood 7.2 g/dL (6.4-8.2)
[2025-07-18 15:52] VITALS: BP 121/83
[2025-07-18] MEDS ORDERED: POTA10T PO (15:54)
[2025-07-18] MEDS ORDERED: AMLO5 PO (15:55)
== END 2025-07-18 16:59 | disposition home or self-care (01) ==
LOC: ER 13:33
PROVIDERS: Physician Assistant
DX: R00.2 Palpitations (principal); I10 Essential (primary) hypertension; E03.9 Hypothyroidism, unspecified; I48.0 Paroxysmal atrial fibrillation; J43.9 Emphysema, unspecified; G47.33 Obstructive sleep apnea (adult) (pediatric); F17.220 Nicotine dependence, chewing tobacco, uncomplicated; Z91.040 Latex allergy status; Z79.82 Long term (current) use of aspirin; Z79.890 Hormone replacement therapy; Z79.51 Long term (current) use of inhaled steroids; Z79.899 Other long term (current) drug therapy
CPT/HCPCS: 71046; 80053; 84484; 85025; 93005; 93010; 99285-25

== ENCOUNTER 2025-10-20 12:34 | Emergency (ER) | payer OTHER ==
[~2025-10-20] VITALS: Ht 175.3 cm; Wt 131.5 kg
[~2025-10-20 12:34] MED LIST changes: +AMLO5 PO
[2025-10-20 13:26] LABS: BASOPHILS ABSOLUTE AUTO 0.10 K/mm3 (0.00-0.23); BASOPHILS PERCENT AUTO 1 % (0-2); EOSINOPHILS ABSOLUTE AUTO 0.24 K/mm3 (0.00-0.68); EOSINOPHILS PERCENT AUTO 3 % (0-6); Hematocrit 43.2 % (37.0-53.0); Hemoglobin 14.3 g/dL (13.5-17.5); IMMATURE GRAN ABSOLUTE AUTO 0.03 K/mm3 (0.00-0.10); IMMATURE GRAN PERCENT AUTO 0 % (0-1); LYMPHOCYTES ABSOLUTE AUTO 1.64 K/mm3 (0.84-5.20); LYMPHOCYTES PERCENT AUTO 18 % (21-46); MONOCYTES ABSOLUTE AUTO 0.58 K/mm3 (0.16-1.47); MONOCYTES PERCENT AUTO 6 % (4-13); Mean Corpuscular HGB Conc 33.1 g/dL (31.5-36.5); Mean Corpuscular Volume 95 fL (80-100); NEUTROPHILS ABSOLUTE AUTO 6.75 K/mm3 (1.96-9.15); NEUTROPHILS PERCENT AUTO 72 % (41-73); NRBC ABSOLUTE 0.00 K/mm3 (0.00-0.02); NRBC Auto 0.0 /100 WBC (0.0-0.2); Platelet Count 156 K/mm3 (150-400); RDW Coefficient Variation 12.6 % (11.7-14.2); RDW Standard Deviation 44.1 fL (35.1-46.3)
[2025-10-20 13:55] LABS: Alanine Aminotransfer (ALT/SGP 31.0 U/L (12-78); Albumin, Blood 3.4 g/dL (3.4-5.0); Albumin/Globulin Ratio 1.0 (0.8-1.8); Anion Gap 10.0 mmol/L (3-11); Aspartate Aminotrans (AST/SGOT 28.0 U/L (12-37); Bilirubin, Total 0.5 mg/dL (0.1-1.0); Blood Urea Nitrogen 20.0 mg/dL (8-24); CO2, Blood 22.0 mmol/L (21-32); Calcium, Blood 9.0 mg/dL (8.5-10.1); Chloride, Blood 108.0 mmol/L (98-108); Creatinine, Blood 1.11 mg/dL (0.60-1.20); Globulin, Blood 3.5 g/dL (2.2-4.0); Glucose, Blood 108.0 mg/dL (70-99); Potassium, Blood 4.6 mmol/L (3.5-5.5); Sodium, Blood 135.0 mmol/L (136-145); Total Protein, Blood 6.9 g/dL (6.4-8.2)
[2025-10-20 15:30] LABS: Source, Urine Clean Catch
[2025-10-20 15:35] LABS: Bilirubin, Urine Neg (Neg); Color, Urine Yellow (P-Yellow); Glucose Qualitative, Urine Neg (Neg); Ketones, Urine Neg (Neg); Leukocyte Esterase, Urine Neg (Neg); Protein, Urine Neg (Neg); Specific Gravity, Urine 1.010 (1.003-1.022); Urobilinogen, Urine NORM (Normal)
[2025-10-20] MEDS ORDERED: Ipratropium/Albuterol SulF 2.5-0.5MG/3 ML Amp INH ONE (17:25)
[2025-10-20 20:15] VITALS: BP 115/77
[2025-10-20] MEDS ORDERED: PRED20 PO (20:15)
== END 2025-10-20 20:24 | disposition home or self-care (01) ==
LOC: ER 12:34
PROVIDERS: Physician Assistant
DX: J44.1 Chronic obstructive pulmonary disease with (acute) exacerbation (principal); I11.0 Hypertensive heart disease with heart failure; I50.9 Heart failure, unspecified; R22.42 Localized swelling, mass and lump, left lower limb; Z91.040 Latex allergy status; F17.220 Nicotine dependence, chewing tobacco, uncomplicated; Z79.82 Long term (current) use of aspirin; Z79.899 Other long term (current) drug therapy; G47.30 Sleep apnea, unspecified; Z88.8 Allergy status to other drugs, medicaments and biological substances; Z87.891 Personal history of nicotine dependence
CPT/HCPCS: 71046; 80053; 81003; 83880; 85025; 96374; 96375; 99285-25; J1938; J2919